=== PATIENT | female | born 1965 | race Caucasian/White ===

== ENCOUNTER 2022-12-19 14:28 | Outpatient (OUT) | payer OTHER, SELFPAY ==
--- NOTE | 2022-12-19 14:31 | MM_ITS ---
Patient: TERA IGNACIO Exam Date: 12/19/2022 : 1965 Gender:F Ordering : DR Betzaida Colon [facility] Admission #: [id number] Family : DR Dian Murcia M.D. Order #: [id number] CLICK HERE TO VIEW EXAM RADIOLOGY REPORT PROCEDURE: MM TOMOSYNTHESIS SCREENING BI COMPARISON: MG MAMM SCREEN 3D JESSE CAD, 10/10/2020. MG MAMM SCREEN 3D JESSE CAD, 12/05/2021. INDICATIONS: Screening mammogram Z12.31 Calculator Name NCI Breast Cancer Risk Assessment Tool 5 Year Breast Cancer Risk n/a% Lifetime Breast Cancer Risk n/a% Personal Breast Cancer Yes, 2013, left Personal Ovarian Cancer No Treatments lumpectomy, radiation Family Cancers Grandmother-paternal with breast cancer at age 81; Mother with female cancer at age 35; Daughter with female cancer at age 34; Aunt-maternal with breast cancer at age 48; Father with lymphoid cancer at age ~60; Father with prostate cancer at age ~70. LOCATION: [facility] BREAST COMPOSITION: Heterogeneously dense,which may obscure small masses. FINDINGS: DIAGNOSTIC CATEGORY 2--BENIGN FINDING. NO CHANGE FROM COMPARISON. Scattered benign-appearing calcifications are present. Scattered benign-appearing lymph nodes are present. RIGHT BREAST: No significant suspicious finding. LEFT BREAST: No significant suspicious finding. Asymmetrically small. Area of architectural distortion upper outer quadrant appears stable from prior exams, consistent with post treatment changes RECOMMENDATIONS: ROUTINE MAMMOGRAM AND CLINICAL EVALUATION IN 12 MONTHS. PLEASE NOTE: A NORMAL MAMMOGRAM DOES NOT EXCLUDE THE POSSIBILITY OF BREAST CANCER. A CLINICALLY SUSPICIOUS PALPABLE LUMP SHOULD BE BIOPSIED. Dictated by: Andrew Piper MD on 12/22/2022 at 08:14 Approved by: Andrew Piper MD on 12/22/2022 at 08:16
== END 2022-12-19 14:29 | disposition home or self-care (01) ==
LOC: MAMMO 14:28
PROVIDERS: PCP Family Medicine; Visit Provider Physician Assistant Medical
DX: Z85.3 Personal history of malignant neoplasm of breast (principal); Z12.31 Encounter for screening mammogram for malignant neoplasm of breast; Z80.3 Family history of malignant neoplasm of breast; Z80.7 Family history of other malignant neoplasms of lymphoid, hematopoietic and related tissues; Z80.42 Family history of malignant neoplasm of prostate; Z80.8 Family history of malignant neoplasm of other organs or systems
CPT/HCPCS: 77063; 77067

== ENCOUNTER 2024-01-26 14:00 | Outpatient (OUT) | payer OTHER, SELFPAY ==
--- NOTE | 2024-01-26 14:11 | MM_ITS ---
Patient Name: TERA IGNACIO MR#: [id number] : 1965 Exam Date: 01/26/2024 Ordering Doctor: DR Dian Murcia M.D. RADIOLOGY REPORT PROCEDURE: MM TOMOSYNTHESIS SCREENING BI COMPARISON: MG MAMM SCREEN 3D JESSE CAD, 12/05/2021. MM TOMOSYNTHESIS SCREENING BI, 12/19/2022. INDICATIONS: Screening Calculator Name NCI Breast Cancer Risk Assessment Tool 5 Year Breast Cancer Risk n/a% Lifetime Breast Cancer Risk n/a% Personal Breast Cancer Yes, 2013, left Personal Ovarian Cancer No Treatments lumpectomy, radiation Family Cancers Grandmother-paternal with breast cancer at age 81; Mother with female cancer at age 35; Daughter with female cancer at age 34; Aunt-maternal with breast cancer at age 48; Father with lymphoid cancer at age ~60; Father with prostate cancer at age ~70. LOCATION: [facility] BREAST COMPOSITION: The breasts are heterogeneously dense,which may obscure small masses. FINDINGS: DIAGNOSTIC CATEGORY 2--BENIGN FINDING. NO CHANGE FROM COMPARISON. Scattered benign-appearing calcifications are present. Scattered benign-appearing lymph nodes are present. RIGHT BREAST: No significant suspicious finding. LEFT BREAST: No significant suspicious finding. Asymmetrically small. Linear scar marker left axillary tail RECOMMENDATIONS: ROUTINE MAMMOGRAM AND CLINICAL EVALUATION IN 12 MONTHS. PLEASE NOTE: A NORMAL MAMMOGRAM DOES NOT EXCLUDE THE POSSIBILITY OF BREAST CANCER. A CLINICALLY SUSPICIOUS PALPABLE LUMP SHOULD BE BIOPSIED. Dictated by: Andrew Piper MD on 01/26/2024 at 15:55 Approved by: Andrew Piper MD on 01/26/2024 at 15:57
--- NOTE | 2024-01-26 14:41 | XR_ITS ---
The [address] [address] Patient Name: TERA IGNACIO MRN: [id number] date: 1965 Sex: F Assigned Patient Location: [facility] Current Patient Location: Accession/Order Number: [id number] Exam Date: 01/26/2024 14:30 Report Date: 01/28/2024 07:28 At the request of: SHANICE RODRIGUEZ Procedure: XR DEXA axial skeleton EXAMINATION: XR DEXA axial skeleton, 01/26/2024 2:30 PM EDT HISTORY: Menopause COMPARISON: None. TECHNIQUE: Dual-energy X-ray absorptiometry (DEXA) bone density study performed for the axial skeleton. FINDINGS: Bone mineral density AP spine L1-L4 measures 1.211 g/sq cm. T score 0.3. Normal. Lowest bone density left femoral neck measures 0.914 g/cm clear. T score -0.9. Normal XR/XR DEXA axial skeleton IMPRESSION: Normal bone mineral density. Low fracture risk Pharmacologic treatment recommendations * No uniform recommendation applies to all patients. Management plans must be individualized. * Consider initiating pharmacologic treatment in postmenopausal women and men >= 50 years of age who have the following: Primary fracture prevention: * T-score <= - 2.5 at the femoral neck, total hip, lumbar spine, 33% radius (some uncertainty with existing data) by DXA. * Low bone mass (osteopenia: T-score between - 1.0 and - 2.5) at the femoral neck or total hip by DXA with a 10-year hip fracture risk >= 3% or a 10-year major osteoporosis-related fracture risk >= 20% (i.e., clinical vertebral, hip, forearm, or proximal humerus) based on the [place]-adapted FRAXregistered model. Secondary fracture prevention: * Fracture of the hip or vertebra regardless of BMD [4, 5]. * Fracture of proximal humerus, pelvis, or distal forearm in persons with low bone mass (osteopenia: T-score between - 1.0 and - 2.5). The decision to treat should be individualized in persons with a fracture of the proximal humerus, pelvis, or distal forearm who do not have osteopenia or low BMD [12, 13]. Becky MS, Yvette SL, Marine KL, Vidhya EM, Alysa KG, AJ, John ES. The clinician's guide to prevention and treatment of osteoporosis. Osteoporos Int. 2021;33(10):6497-6522. doi: 10.1007/r42823-741-91631-g. Epub 2021Aug 08. Erratum in: Osteoporos Int. 2021Nov 07;: PMID: [id number]; PMCID: [id number]. Electronically authenticated by: MALGORZATA ZIMMERMAN Date: 01/28/2024 07:28
== END 2024-01-26 14:01 | disposition home or self-care (01) ==
LOC: MAMMO 14:01
PROVIDERS: PCP Family Medicine; Visit Provider Family Medicine
DX: Z12.31 Encounter for screening mammogram for malignant neoplasm of breast (principal); Z78.0 Asymptomatic menopausal state; Z80.3 Family history of malignant neoplasm of breast; Z80.7 Family history of other malignant neoplasms of lymphoid, hematopoietic and related tissues; Z80.42 Family history of malignant neoplasm of prostate; Z80.8 Family history of malignant neoplasm of other organs or systems
CPT/HCPCS: 77063; 77067; 77080

== ENCOUNTER 2024-11-06 17:30 | Emergency (ER) | payer OTHER, SELFPAY ==
[2024-11-06 17:33] VITALS: BP 124/73; PULSE 89; TEMP 37.4; O2SAT 96; BMI 33.3
--- NOTE | 2024-11-06 17:35 | XR_ITS ---
The [place] [address] Patient Name: TERA IGNACIO MRN: [id number] date: 1965 Sex: F Assigned Patient Location: ED.MAIN Current Patient Location: ED.MAIN Accession/Order Number: [id number] Exam Date: 11/06/2024 17:59 Report Date: 11/06/2024 18:00 At the request of: MUMTAZ CARRANZA Procedure: XR wrist RT min 3V RIGHT WRIST - 3 views CLINICAL HISTORY: Fell forward on blacktop COMPARISON: None FINDINGS: Soft tissue swelling is present. Impacted intra-articular fracture involving the distal radius. Ulna demonstrates a chip fracture involving the styloid process. Carpus demonstrates mild degenerative change. XR/XR wrist RT min 3V IMPRESSION: IMPACTED INTRA-ARTICULAR FRACTURE OF THE DISTAL RADIUS. CHIP FRACTURE STYLOID PROCESS OF THE ULNA. Impression dictated by: Chuck Tipton Jr., DDanayODanay 11/06/2024 6:00 PM Dictation Location: [employer] Electronically authenticated by: [id number] Y Date: 11/06/2024 18:00
--- OUTSIDE RECORDS SUMMARY | 2024-11-06 17:56 | XMS_ITS | CCD ---
Author Organization [facility] Care Team Providers Care [employer] Operator Name Role Phone SHANICE RODRIGUEZ Primary Care Physician [phone] Shanice Rodriguez MD Primary Care Provider [phone] MIS, DR BOOTH Attending Unavailable MISC, DR BOOTH Admitting Unavailable ARMANDO, DR RAJI Rowland Consulting Unavailable MICHAEL, DR SHANICE Kelley Primary Care Unavailable LATRICE RENNER Consulting Unavailable MICHAEL, DR SHANICE Kelley Admitting Unavailable MICHAEL, DR SHANICE Kelley Attending Unavailable MICHAEL, DR SHANICE Kelley Consulting Unavailable MICHAEL, DR SHANICE Kelley Primary Care Unavailable LUZ MEDINA Consulting Unavailable Shanice Rodriguez MD Primary Care Provider LATRICE RENNER Referring Unavailable SHANICE RODRIGUEZ Primary Care Unavailable BETZAIDA COLON Attending Unavailable Sandra Medina Unavailable Shanice Rodriguez Unavailable Shanice Rodriguez MD Primary Care Provider [phone] Gaivn Coleman Admitting Unavailable Shanice Rodriguez Primary Care Unavailable Gavin Coleman Attending Unavailable Shanice Rodriguez Primary Care Unavailable Gavin Coleman Attending Unavailable Gavin Coleman Admitting Unavailable Shanice Rodriguez MD Primary Care Provider GALE ENRIQUEZ Attending Unavailable GAVIN FUENTES Attending Unavailable SANDRA QURESHI Referring Unavailable SANDRA QURESHI Attending Unavailable SANDRA QURESHI Attending Unavailable COLEMANGAVIN FIELDS Attending Unavailable SANDRA QURESHI Attending Unavailable Allergies Allergy Classification Reported Allergen(s) Allergy Type Date of Onset Reaction(s) Facility (1 source) Adhesive bandage Drug allergy Unknown (qualifier value) [facility] (18 sources) Latex; Translations: [Latex] Drug allergy 5 Unknown (qualifier value) [facility] (4 sources) Adhesive Tape; Translations: [ADHESIVE TAPE (ROSINS)] Allergy to substance 3 Itching [facility] (2 sources) Adhesive Tape Drug allergy 5 Unknown [facility] Other (2 sources) Adhesive Tape; Translations: [adhesive tape] Allergy to substance 4 [facility] (13 sources) Wound Dressing Adhesive Drug Allergy 3 Rash, Itching [facility] (13 sources) Wound Dressings Drug Allergy 4 [facility] Medications Current Medications Medication Drug Class(es) Dates Sig (Normalized) Sig (Original) albendazole 200 mg oral tablet (2 sources) Antihelminthic Start: 04-25-2023 take 2 tablets by mouth every twenty-four hours Albendazole 200 MG 2 tablets Orally once a day for 3 days Apr, Active ALPRAZolam 0.25 mg oral tablet (1 source) Benzodiazepine Start: 08-30-2021 take 1 tablet by mouth twice daily as needed for anxiety alprazolam 0.25 mg Tab 0.25 mg = 1 tab(s), Oral, BID, PRN as needed for anxiety, Refills(s) 0 Start Date: 08/30/21 Status: Ordered calcium carbonate 1250 mg chewable tablet (13 sources) Start: 12-31-2023 calcium carbonate (Os-Dewayne) 1250 (500 Ca) MG chewable tablet Daily 12/31/2023 Active Calcium Magnesium Zinc 333-133-5 MG (2 sources) take 1 tablet by mouth once daily at bedtime Calcium Magnesium Zinc 333-133-5 MG 1 tablet with meals Orally qhs Active cetirizine hydrochloride 10 mg oral tablet (15 sources) Histamine-1 Receptor Antagonist Start: 12-31-2023 cetirizine (ZyrTEC) 10 MG tablet 1 tablet 12/31/2023 Active take 1 tablet by john every twenty-four hours Allergy (Cetirizine) 10 MG 1 tablet Oral ly Once a day Active cholecalciferol 0.01 mg / tricalcium phosphate 658 mg chewable tablet (16 sources) Vitamin D Ca Phosphate-Cho lecalciferol 250-10 MG-MCG chewable tablet Chew. Active calcium phosphat e-vitamin D3 250 mg-10 mcg (400 unit) chew Take by mouth. 0 Active Comment on above: Take by mouth. Multivitamin (Daily Multi-Vitamin) tablet (1 source) Start: 4 take 1 tablet by mouth once daily Multivitamin (Daily Multi-Vitamin) tablet Active 1 TAB PO Daily December 31, 2023 12:00am Multivitamin preparation (2 sources) take 1 tablet by mouth once daily Multi Vitamin - 1 tablet Orally Once a day Active tamoxifen 20 mg oral tablet (5 sources) Estrogen Agonist/Antagonist Start: 3 End: 3 take 1 tablet by mouth once daily tamoxifen (NOLVADEX) 20 mg tablet Take 1 tablet (20 mg) by mouth once daily. 90 tablet 3 08/13/2022 11/11/2022 Active Start: 12-09-2021 take 1 tablet by john th once daily tamoxifen (NOLVADEX) 20 mg tablet Take 1 tablet (20 mg) by mouth once daily. 90 tablet 2 12/09/2021 Active Start: 09-21-2020 End: 09-23-2021 take 1 tablet by mouth once daily tamoxifen (NOLVADEX) 20 mg tablet TAKE 1 TABLET BY MOUTH EVERY DAY 90 tablet 3 09/23/2021 Active Comment on above: TAKE 1 TABLET BY JOHN TH EVERY DAY Take 1 tablet (20 mg ) by mouth once daily. Completed/Discontinued Medications Medication Drug Class(es) Dates Sig (Normalized) Sig (Original) ferrous sulfate (3 sources) End: 03-02-2024 take 1 tablet by mouth in the morning Ferrous Sulfate (IRON PO) Take 1 tablet by mouth in the morning. 03/02/2024 Discontinued take 1 tablet by mouth in the mo rning Ferrous Sulfate (IRON PO) Take 1 tablet by mouth in the morning. Active Problems Active Problems Problem Classification Problem Date Documented Date Episodic/Chronic Cancer of breast (3 sources) Malignant tumor of breast ; Translations: [Malignant neoplasm of unspecified site of unspecified female breast] Onset: 07-06-2012 07-06-2012 Chronic Menopausal disorders (5 sources) Postmenopausal bleeding; Translations: [Postmenopausal bleeding] Onset: 04-07-2024 03-02-2024 Chronic Other aftercare (2 sources) Surgical follow-up; Translations: [Encounter for follow-up examination after completed treatment for conditions other than malignant neoplasm] 04-22-2024 Episodic Other and unspecified benign neoplasm (2 sources) Melanocytic nevus of trunk; Translations: [Melanocytic nevi of trunk] 09-08-2024 Episodic Other and unspecified benign neoplasm (2 sources) Dermatofibroma; Translations: [Other benign neoplasm of skin, unspecified] 09-08-2024 Episodic Other infections; including parasitic (1 source) Helminthiasis, unspecified Episodic Other non-epithelial cancer of skin (1 source) Basal cell carcinoma of upper extremity 08-30-2021 Episodic Other nutritional; endocrine; and metabolic disorders (1 source) Body mass index 30+ - obesity 09-06-2021 Chronic Other screening for suspected conditions (not mental disorders or infectious disease) (2 sources) Endometrium thickened; Translations: [Abnormal findings on diagnostic imaging of other specified body structures] 03-31-2024 Chronic Other screening for suspected conditions (not mental disorders or infectious disease) (11 sources) Screening for malignant neoplasm of colon done; Translations: [Encounter for screening for malignant neoplasm of colon] Onset: 09-06-2021 Episodic Other skin disorders (2 sources) Lentiginosis; Translations: [Other melanin hyperpigmentation] 09-08-2024 Episodic Other skin disorders (2 sources) Seborrheic keratosis; Translations: [Other seborrheic keratosis] 09-08-2024 Episodic Residual codes; unclassified (1 source) Family history of malignant neoplasm of breast; Translations: [FAMILY HX MALIG NEOPLASM OF BREAST] Onset: 12-06-2021 Episodic Residual codes; unclassified (1 source) Family history of other malignant neoplasms of lymphoid, hematopoietic and related tissues; Translations: [FAM HX OTH MAL DONOVAN LYMPH HEMATPOETC] Onset: 12-06-2021 Episodic Residual codes; unclassified (1 source) Family history of malignant neoplasm of prostate; Translations: [FAMILY HX MALIG NEOPLASM PROSTATE] Onset: 12-06-2021 Episodic Residual codes; unclassified (1 source) Family history of malignant neoplasm, unspecified; Translations: [FAM HX MALIGNANT NEOPLASM UNS] Onset: 12-06-2021 Episodic Residual codes; unclassified (1 source) Menopause present; Translations: [Asymptomatic menopausal state] 12-31-2023 Episodic Residual codes; unclassified (1 source) Asymptomatic menopausal state; Translations: [Symptomatic menopausal or female climacteric states] 12-31-2023 Episodic Spondylosis; intervertebral disc disorders; other back problems (1 source) Low back pain 08-30-2021 Episodic Unclassified (1 source) Patient encounter status 09-06-2021 Unclassified (3 sources) LOW BACK PAIN, UNSPECIFIED; Translations: [LOW BACK PAIN, UNSPECIFIED] Onset: 08-14-2021 Past or Other Problems Problem Classification Problem Date Documented Da te Episodic/Chronic Anal and rectal conditions (13 sources) Rectal pain; Translations: [Other specified diseases of anus and rectum] Onset: 10-13-2023 10-13-2023 Episodic Cancer of breast (4 sources) History of malignant neoplasm of breast; Translations: [Personal history of malignant neoplasm of breast] Onset: 10-24-2015 08-30-2021 Episodic Gastrointestinal hemorrhage (13 sources) Hematochezia; Translations: [Melena] Onset: 10-13-2023 10-13-2023 Episodic Hemorrhoids (15 sources) Hemorrhoids; Translations: [Other hemorrhoids] Onset: 10-13-2023 10-13-2023 Episodic Unclassified (1 source) LOW BACK PAIN, UNSPECIFIED; Translations: [LOW BACK PAIN, UNSPECIFIED] Onset: 08-09-2021 Results Test Name Value Interpretation Reference Range Facility PATHOLOGY REQUEST FOR LAB CO RPon 04-12-2024 PATHOLOGY REQUEST FOR LAB SHAMA [facility] Comment on above: See report. Scanned copy available in EMR. PATHOLOGY AMBULATORY SPECIMEN [facility] Path[facility] Request for Lab Co rpon 04-07-2024 Pathology Request for Lab Shama Normal [facility] Comment on above: Order Comment: PATHO LOGY AMBULATORY SPECIMEN Result Comment: See report. Scanned copy available in EMR. PERFORMED BY: [address] [id number] PATHOLOGIST SUPERVISOR [employer] PAULINA JETER M.D. Performed By: #### P ATH TO [facility] #### [address] [address] [facility] ECG 12 lead ECGon 03-18-2024 ECG 12 lead ECG [facility] Main [place] [address] [id number] Electrocardiograph Report Signed Patient: Tera Ignacio MR#: [id number] : 1965 Acct:[id number] Age/Sex: 59 / F ADM Date: 03/18/24 Loc: Room: Type: [facility] Attending Dr: Gavin Coleman MD Ordering Provider: Gavin Coleman MD Date of Service: 03/18/2410/04/1444 ECG/ECG 12 lead ECG: surgery 04/07/24 Copies to: Test Reason : Blood Pressure : */* mmHG Vent. Rate : 85 BPM Atrial Rate : 85 BPM P-R Int : 194 ms QRS Dur : 86 ms QT Int : 344 ms P-R-T Axes : 53 -47 7 degrees QTcB Int : 409 ms Normal sinus rhythm Left anterior fascicular block Nonspecific T wave abnormality Abnormal ECG Confirmed by Molly Galeas ([id number]) on 03/20/2024 11:01:58 PM Referred By: Electronically Signed By: Molly Galeas Transcribed By: MUS Signed By Molly Galeas MD 4 [id number] Normal [facility] [place] 08-08-2022 ZURI Telephone (MATHIEU) TERA IGNACIO ([id number]) 1965 F Date Time Provider Department 08/08/22 SARAI NORRIS During your visit today, we recorded the following information about you: Curry Norris [facility] 08/08/2022 11:28 AM Signed I received a prior authorization request for Tera's tamoxifen, from what I see she should be done with her 10 years next month. OK for her to stop now? Please advise, if I should move forward with CINDI. Thank you Dale Norris, PharmD, BCOP Betzaida Colon PA-C 08/11/2022 2:56 PM Signed I'd prefer she finish one more month of therapy Betzaida Colon PA-C Allergies As of Date: 08/08/2022 Noted Allergy Reaction ADHESIVE TAPE (ROSINS) 07/06/2012 9 - Itching Date Reviewed: 12/09/2021 Reviewed by: Betzaida Colon PA-C - Fully Assessed Reason for Visit: Medication Question [1478] Prescriptions as of 08/11/2022 - tamoxifen (NOLVADEX) 20 mg tablet Take 1 tablet (20 mg) by mouth once daily. - calcium phosphate-vitamin D3 250 mg-10 mcg (400 unit) chew Take by mouth. Problem List As Of Date 08/08/2022 Noted Resolved Breast cancer [C50.919] 07/06/2012 History of breast cancer [Z85.3] 10/24/2015 Encounter Status:Closed by SARAI NORRIS on 08/11/22 [facility] CNOVSPon 12-09-2021 CNOVSP Visit (SP) Office (HEMASA) TERA IGNACIO ([id number]) 1965 F Date Time Provider Department 12/09/21 2:00 PM BETZAIDA COLON During your visit today, we recorded the following information about you: Temperature Pulse Respiration Blood pressure 96.9 degrees 74/minute 18/minute 132/68 Weight Height 94 kg 1.651 m Betzaida Colon PA-C 12/09/2021 2:38 PM Signed (Elements copied from Dr. Renner's note dated October 24, 2020, have been reviewed and updated where appropriate, and all reflect current assessment and medical decision making during today's encounter, December 09, 2021) CHIEF COMPLAINT: stage 1 left breast cancer HISTORY OF PRESENT ILLNESS: Tera Ignacio is a 55 year old woman who presents in follow up of above. Diagnosed 06/2012, treated with left lumpectomy and radiation. Tumor was [id number]. ER and WY receptors were strongly ( >90 %) positive, HER 2 jun was negative by FISH with the score 1.1. KI 67 was 5-10 %. Oncotype score was 19. Started Tamoxifen 08/2012. Remains on Tamoxifen and tolerates it well. Minor hot flashes. No vaginal bleeding or signs of clotting. Last mammogram was in November 2021 and negative. She did have surgery on her left trigger thumb earlier this month and it is healing well. PAST MEDICAL HISTORY Diagnosis Date Breast cancer (HCC) PAST SURGICAL HISTORY Procedure Laterality Date BREAST BIOPSY Review of Social History includes: Social History Tobacco Use Smoking status: Never Smokeless tobacco: Never Substance Use Topics Alcohol use: Yes Drug use: No No family history on file. Current Outpatient Medications Medication Sig tamoxifen (NOLVADEX) 20 mg tablet TAKE 1 TABLET BY MOUTH EVERY DAY calcium phosphate-vitamin D3 (CALTRATE GUMMY BITES) 250-400 mg-unit chew Take by mouth. No current facility-administered medications for this visit. REVIEW OF SYSTEMS: Constitutional: No fever, night sweats or unwanted weight loss. Respiratory: No cough or hemoptysis. NO dyspnea Cardiovascular: No chest pain or palpitations. NO leg swelling GI: No nausea, vomiting, diarrhea or GI bleed. Skin: No rash or lesions. Neurologic: No focal weakness or sensory changes. Psychiatric: Normal affect. Denies mood swings Hematopoietic: No easy bruising or enlarged lymphadenopathy. : No frequency or dysuria. No recent menses, recent testing as noted PHYSICAL EXAMINATION: BP 132/68 Pulse 74 Temp 36.1 ?C (96.9 ?F) (Temporal) Resp 18 Ht 165.1 cm (5' 5 ) Wt 94 kg (207 lb 3.2 oz) LMP 10/12/2020 SpO2 99% BMI 34.48 kg/m? General: Alert and oriented, no distress, pleasant and cooperative. Heart: Regular, normal S1 and S2, no murmurs, rubs, or gallops Lungs: Clear to auscultation bilaterally Abdomen: Benign Extremities: Feet/ankles without edema, posterior tibial pulses full and symmetrical Breast: bilateral breast exam without masses, nodules or skin lesions 12/05/21 Mammogram 08/04/17 Mammo Pathology 06/2012 56 year old woman with history of stage 1 left breast cancer. Currently on tamoxifen. Tolerating well with only mild hot flashes. Has elected to proceed with 10 years of Tamoxifen 1. History of Left Breast Cancer: Will continue tamoxifen and finish 10 years in August 2022, then stop. Mammogram in November 2022 See us in 1 year for follow up. Betzaida Colon PA-C Referring Provider: LATRICE RENNER [[id number]] Allergies As of Date: 12/09/2021 Noted Allergy Reaction ADHESIVE TAPE (ROSINS) 07/06/2012 9 - Itching Date Reviewed: 12/09/2021 Reviewed by: Betzaida Colon PA-C - Fully Assessed Reason for Visit: Breast Cancer [519] Primary Visit Diagnosis:History of breast cancer [Z85.3] Order(s):tamoxifen (NOLVADEX) 20 mg tabletTake 1 tablet (20 mg) by mouth once daily.Disp: 90 tabletRfl: 2 ANN SCREENING W LEORA [[id number]] Order #: [id number] FUTURE Disposition: Return in about 1 year (around 12/09/2022) for MD visit. Follow-up and Disposition History for Encounter Date Provider Department Center 12/09/2021 [id number], M[facility]Y [facility] Prescriptions as of 12/09/2021 - tamoxifen (NOLVADEX) 20 mg tablet Take 1 tablet (20 mg) by mouth once daily. - calcium phosphate-vitamin D3 250 mg-10 mcg (400 unit) chew Take by mouth. Problem List As Of Date 12/09/2021 Noted Resolved Breast cancer [C50.919] 07/06/2012 History of breast cancer [Z85.3] 10/24/2015 Encounter Status:Closed by BETZAIDA COLON on 12/09/21 [facility] MG MAMM SCREEN 3D JESSE CADon 12-05-2021 MG MAMM SCREEN 3D JESSE CAD Patient: TERA IGNACIO Exam Date: 12/05/2021 : 1965 Gender:F Ordering : LATRICE RENNER Admission #: [id number] Family : DR BOOTH [facility] Order #: [id number] CLICK HERE TO VIEW EXAM RADIOLOGY REPORT PROCEDURE: MAMMOGRAM SCREENING 3D BILATERAL CAD COMPARISON: MG MAMM SCREEN JESSE W CAD, 09/27/2019. MG MAMM JESSE DIAG W CAD, 08/13/2018. DIGITIZED_MAMMO, 03/18/2006. MG MAMM SCREEN 3D JESSE CAD, 10/10/2020. INDICATIONS: Screening mammography Calculator Name NCI Breast Cancer Risk Assessment Tool 5 Year Breast Cancer Risk n/a% Lifetime Breast Cancer Risk n/a% Personal Breast Cancer Yes, 2013, left Personal Ovarian Cancer No Treatments lumpectomy, radiation Family Cancers Grandmother-paternal with breast cancer at age 81; Mother with female cancer at age 35; Daughter with female cancer at age 34; Aunt-maternal with breast cancer at age 48; Father with lymphoid cancer at age 60; Father with prostate cancer at age 70. LOCATION: [facility] BREAST COMPOSITION: Heterogeneously dense,which may obscure small masses. FINDINGS: DIAGNOSTIC CATEGORY 1--NEGATIVE. RIGHT BREAST: No significant suspicious finding. No significant change has occurred. LEFT BREAST: No significant suspicious finding. No significant change has occurred. RECOMMENDATIONS: ROUTINE MAMMOGRAM AND CLINICAL EVALUATION IN 12 MONTHS. PLEASE NOTE: A NORMAL MAMMOGRAM DOES NOT EXCLUDE THE POSSIBILITY OF BREAST CANCER. A CLINICALLY SUSPICIOUS PALPABLE LUMP SHOULD BE BIOPSIED. Dictated by: Raji Melgoza M.D. on 12/05/2021 at 14:05 Approved by: Raji Melgoza M.D. on 12/05/2021 at 14:08 Normal [facility] Coding Summary.on 10-22-2021 Coding Summary. [id number] Gh 0bWw+PGhlYWQ+GT4PFAHwV 42dvSBfsB7ED9oPTJ2SKBH YMXYSAQ7AKB0rvQC4JVuhG 2VybiAv KexsyLLrFL11IYd3IBL9zE egVDsyzD4qfTFtA0y6CaVb FA38fR79DFbwKZCfHcT6Ru ZpbjsgbWFy X5zgIuZiiMZtOcr+PHRhYm xlIHdpZHRoPScxMDAlJyBz hKsdSF5hBc1gOFSxDIExlY xhcHNlOiBj z6kdLLDaYJrfBE7ipMatE7 NkuPF2AKAez4z4Dt45uQP+ QDYxESB8fNwwLZpdi184Yh Cak5zfADK7 yCMqKSdiHBS6R55km4J4YG YnUOWiPBA1iXI6lN6ogZyp cjgvI9NctACiKuF5CUK8oM GrkO7quUov xezroL6nKvw+D59QUE2GTR QHXM7EQeg9W0RmJqqzzHA+ NI97PVSfUX03gSVkeYJgd3 wvlEe4UxAv PFWqXKO6bMwxJYtnj6NvIC TzO75gaFRwo2A7QODdeVdg hWKzGsPgrCC4fI3kFLilad pie8aaotgh Dknqy4uzvv72zD38E06lQF itHWUeBZD9WDAuTCMbgMfa ht4zlO9fJl3+HRvqg1ddc6 masRm7HvKj KTKyofPlbNtzGOI5s8VmHq 20U6ThrTnpz9BmZmc3im86 hBCbk5W3vFT1XKhwTLLkmS 5lSBwqAzM6 TYTqAnBweV04bQByEEgbTc 7zgYxjfUcdYO8bYRBybqmd MAPglB8mHXOnzWQifXxaJR 4wNTBpbjtm l900MuBxFDD3ZDPhbEYyR4 KnbZ7uZmVpTHFqAABvQ0Ty gZWsDBvnU577FNvdXeQ0JR CearPzD3Mi NTIbgPbeHeH0l6N0Zf2Ec3 IlneuwMFW6PQbbUIH3XcTe ZxAnAxT7J3NkZco0EWHigN rfEE6kT3Jl CZFiylbvbwguvOX4YLYiCA UzaH50rJGsYAymCg2sk2L5 x286MQDkRNHotN53Mi1whL ogMTBwdCBU eP9jttcep2ifxsjhIuMjTG VaHFd6WJb3BLPtxTuqPjOx NLO3LqR4ZKZ1gIXvvA3uaU qkyobmqE8f Oyc+W44brQ0tJKR7KIF4ni vrFAPmbgQvNL10TL20V0Mk PjwvdGFibGU+PGRpdiBzdH zyQC4uTcTf w6odc5TlNWmwB3GdVQNzVQ xnIda2OTQmBTG3cKF9sF7h EUTySKakq0Y7cUG2P9Ogcx Zmgj4nt7wm JHLkIOhnJ36upXXay7N2XI TalTI6ICEurWggTsQojJ40 Oyc+RPGegAnnr0ObOlkpr5 kgd9godFt3 DoClTLTjlwLryBhjDWV5i7 PlDb32K52yLYgyHIWeFKVe DNMkAOGxeZhztz0fkG7mAd 8+PGNvbCB3 eZX4xH8sSFAoBqN0QXjvO0 44BkFrwMEoBbnxh2kau3qz uTh5MfZeQCCbqyVtaOrtRK P0v3RyZb45 K07gGErjKKQwBGZwUKFbVO RnsRozjf6mfF5eOl2+PC9j w4rwmg05cR82fON+PHRkIH K1bYcdALva PZKizT7hXAlyAzP9VZJvXu FqyT99lMXaBVwmMl0fpZhl pWkhSR0bTZAufosup432Bp Dyf1jaKGXn bYObHWghBMR0F21kw3Y5NN TuYMMfTRB0tZB8vX6bcTqe bjogbGVmdDsgdmVydGljYW kmDNcsO819 IHRvcDsnPlBhdGllbnQgTm TiGVi9A5OaYju2PPDytOsa UE6pmNIaYFnbTi5piVklvO vrPZ0bDRLs rdizn549LhIyh9wkCKYtaB ZcRNgdPSG4R42cb5A1ATIm WEByGKJ7sGZ2kD5lyXaxov ogbGVmdDsg xzSjoNneGDeaNWkmW390EZ RvcDsnPkJpcnRoIERhdGU6 XN91XI57fLTro2A9tLQ1P9 BhZGRpbmct rzsctPF3UTGsJRBgcT14Nx 5jdXkeXr0vCJNoVQZ6VQUm jYToN6MrlA9nXeCxCTJiWX FqJ9GeqAPz VAeoV851HSmjPkW1DREnqo JmR2McLIJjeMsmUyP9k4M5 Fh0TT3P1LX78KG10pMOhe6 G3hUO4D6Aj SYDyxfqukovljGV5BKBlXT WkoR55Oz8fhVjuPt2aKAEt WPR9RCZlbVMtD3GokT6wIj AjMDAwMDAw T7LpaQZpRXpdP283GGcgFf A9ZKRiokYbI3FrGXRsvIsa WoP2u3A3Fr0XFOz3YW17QB 28wQLxm0J5 zEG9U0TuIJDhfpinkrkmmG A8ZWUrQKMlkV95Aw6qoTcp Bp3cOGCtRWE8NAEibYRwW2 VdrB7cPjGh XCNdQBCzL9UeaYYwGIocR9 71ACvoWtV4EEPhgyNzN4Yi RETzlCcbDsY8b1W1Dm2HES LhOU93MIG6 uPB4AW94UU11V8HrZzdwsI FibGU+PHRhYmxlIHdpZHRo ATzcLNJmKiUnaNiqRS3zIj 9yZGVyLWNv oGvitVDgTpLpw5fdZZBnZU kcPK6wuAztE9NimRK9SXLk h8l6Gk86F02oI9PrgVC+PG LqkOY5sWS6 zC3fZcRqSoM7WFyuC623Zq UliXUwMelrx2fed0vtpLh5 IvL9NRUqlrIsuEiaKSF4p5 CzHn40N46f IHdpZHRoPSIxNSUiIHZhbG yohn1fkM0eRv7+PGNvbCB3 qCM7hD3eWhZnSeU0OCxoE3 49InRvcCIv Myfkv7qid7dpuSo3WwVsVD McgaCquVbdJSW1d4AaCy43 U2YigWhdk4LyQob1le39wO Gvb3S3zYG8 Q2BfEOYucomseCJvaCiwFA 4yBGRueipjNJSseQ2fXBZd Z1d5EpFcMeY9HPuuW3Rldq Q8WQQqbWVd ANkaOIY9J26zo6F8XPEgYL OkGYX4zBD7mY5bzYakgcxn bGVmdDsgdmVydGljYWwtYW lvX119UDRx wCacOLFifZ9pSPEgtWFijW qoUT7fVFRfqrkyCkXFV7Ob UV1EXqLLYWj6B8KpGnt2AC HzyOvnKF7j gQWlNWqdYc5frUogwAxhUH 0vKNLmmullSRYocP5tCGPq aKAbsMfnSZ1jMCYghjxkb2 78QsRdMQV7 MLMabRYuB5MtjD4jJvGxUK DeWSVfF7IcyBMsGUyuK193 VLevAmB0XDUlznDcB8EbEK FsaWduOiB0 s2P0Tt8wNd7pHN2dMNL5GU 87QL67qVWwq9X8gFI0Q3Vo YUCzqglosahhqIC3RKJgMF IvaW61aDZw YSmsKd5va3D2s370LZYoFI FgyU97Aj2yyWlbDYWcqGNN iP5wgvcqg4yhysyhBgPqFT VlVQd0ZTx2 TBRxaNquInXvNAP6MiF8DU O6hYSjaH7ivSjqhxivvG7w Oyc+ORFkPQAohfA5Z4XtGw t9MNIqyQem JI7pcTGmAOrhIt2bmNmwnE fvJC1zHHQepfyyEKMajA4p PQWrjCTebWeeBP8zDEGyod fuc507GnVf XYZ8MIEayILbF9JowQ9gVq OjOAMcITUfG2CgmFXfOUxm M943KIatMnH2GQAyqcSnA2 FsLWFsaWdu UtQ9i6M4Rc5CRS9tlJX7C9 IqCqa9DHMijNttPS6zzRUx KUkcQb9ugXwgcInmKB0xXD BpbjtwYWRk zV0mQRWujMWnwBwqBQ4mCG Kmulhdd591RjQsPYC2LOOi hEOdT2BqgJ9aFmZsTGGkJP YuM1GbkFBz LXzeQ940RNvfAeT1YQEgxh KcK0RyMBSsjEogMnL8k1B7 Vz5QtLUlMUCtWL95UL57PP 93T6ByLron dGFibGU+PHRhYmxlIHdpZH FzCCdnUYRrAxEhlGokMQ7m Tz7kFEQhMCTkkTaxaVGwHr Lhp1mlNEYo GBuoBW3uoGswO3YltLG0EQ Jhm8h1Nc35E91vU6MioWL+ JEXlnJW4uZF3eY0yYjZcIj K8HAvfS269 SoEmdEIgOqkzg2wrq2wpcS e2IzXuICPuqqIvuTeiHYD7 t6MyXc43S99qUCewNIMkNV IyMCUiIHZh oQzbde0xyC9jTd0+PGNvbC P7iRR0jT9eBfRvDlE5EIfk X582XzDpvQCbKrfpY85hU8 JvdXA+PHRy Pss8HBWngWgyWI0odXObZC ubCe5dUBP1DjOoVsKlAUnh C6KlHWUwwzbudopqlWW5DN YuUFJzdI13 Hj4eeTlkMz7jEMSrFZO1QG QubJEeM8UygJ9yAjEjPMRb IPBtW6JvcSRfCRqpQ124DE xvCsH1RCPw ilZxJ3ZkUFIxcEtcRrB8q1 N4Pj4MdChdfZJbZY8sLmOs JUu9G0ElSzr3TBRguQcwYR 0ncGFkZGlu Gq4phIdfnPycRF9kVJSiqb jro323IhKuu0cdQICodEOe JOkvYBM7N64rj6V4PBSdNG SyKYP6uIY3 hY0wqVienqaurJKchCzpol YjsEajQQtvQHhkZ029TESi rPghXnRGCzq6N6KlPcu9QK PfjEqsIZ7x gMDgHMevJi4ebSxmvPnwTJ 7wIEOckuyhy393VcLho8qd CDLixPPfTAwwUUA4W87qe6 O0XFXyRZCk FTY5kDE7mL9bxUtaneeefP VmdDsgdmVydGljYWwtYWxp I513ODOeoImhTd2FPmy3B0 KsJru8CTLi wSmvUW1tbITgTZsaYq2hsN lfsLkyDS7fJHXraxcah599 AxWvj5iaCXHejUGrZBgkXU K7V69oq3J9 QGRdWSPbRTE9eQY1cO9uoC lnbjogbGVmdDsgdmVydGlj OKeoBGmkS339KYFjyBcaAd BheWVyOjwv dGQ+BV43zl97U1VgPuvhAr s5YYZoLYK8cRG5kK4bLEEy AGqyu9S6kQM5P2TlmqXpkl 3kx8nyPGDw ZTog (more content not included)... Normal [facility] IntraOperative Documentson 0 10-21-2021 IntraOperative Documents [id number] [facility] Main OR Intraoperative Recor don 10-17-2021 Main OR Intraoperative Record IntraOp Document Type FT Summary Primary Physician: Zac DE LA CRUZ MD Finalized Date/Time: 10/17/21 07:45:49 Pt. Name: TERA IGNACIO Ayleen/Sex: 1965 Female Med Rec #: [id number] Physician: Ruben BARKER MD Financial #: [id number] Pt. Type: O Room/Bed: / Admit/Disch: 10/11/21 08:56:07 - 10/11/21 23:59:59 Institution: Case Times FT Entry 1 Patient Times In Room 10/11/21 10:05:00 Out Room 10/11/21 10:22:00 Procedure Times Start 10/11/21 10:08:00 Stop 10/11/21 10:20:00 Anesthesia Times Start 10/11/21 10:05:00 Stop 10/11/21 10:22:00 Time at [place] 10/11/21 10:14:00 Last Modified By: Gio CÁRDENAS, Marylu Fish 10/11/21 10:22:04 General Comments: 10/17/21 Chart opened to review and send charges [facility]oth CSFA Case Attendance FT Entry 1 Entry 2 Entry 3 Case Attendee Nancy Mendoza RN, Neha Ram Role Performed Anesthesiologist Health Director - Primary Scrub - Primary Warehouse Foreman Time In 10/11/21 10:05:00 10/11/21 10:05:00 10/11/21 10:05:00 Time Out 10/11/21 10:22:00 10/11/21 10:22:00 10/11/21 10:22:00 Procedure COLONOSCOPY(.) COLONOSCOPY(.) COLONOSCOPY(.) Comments Dr. Chanel supervising case Last Modified By: Gio CÁRDENAS, Marylu Powers RN, Marylu López RN 10/11/21 10:22:04 10/11/21 10:22:04 10/11/21 10:22:04 Entry 4 Case Attendee Zac DE LA CRUZ MD Role Performed Surgeon - Primary Time In 10/11/21 10:05:00 Time Out 10/11/21 10:22:00 Procedure COLONOSCOPY(.) Comments Last Modified By: Marylu Powers RN 10/11/21 10:22:04 Perioperative Protocols FT Pre-Care Text: Implements protective measures prior to operative or invasive procedure, confirms identity before the operative or invasive procedure, verifies operative procedure, surgical site, and laterality Entry 1 Procedure(s) COLONOSCOPY(.) Patient Identity Birthday, ID Band Verified (select at Check, Patient least 2): Participation Consents / H and P Anesthesia Consent, Operative Site N/A Verified HandP, Surgery/Procedure Marking Verified Consent Surgical Site No Laterality Verified n/a Verified Procedure Verified Yes Correct Patient Yes Position Verified Availability Equipment, Medication Prep Dry n/a Verified (If Applicable) PreOp Antibiotic No Time Out Nancy Mendoza, Given Participants Gio CÁRDENAS, Matthew Rivera Kirstyn K, DOROTHY BEAULIEU, Zac Rowland Time Out Complete 10/11/21 10:06:00 Outcomes Met? Yes Last Modified By: Marylu Powers RN 10/11/21 10:07:53 Post-Care Text: The patient is free from signs and symptoms of injury caused by extraneous objects Allergy Information FT Pre-Care Text: Verifies allergies Entry 1 Allergies Reviewed? Yes Allergies Reviewed Self/Patient With Outcomes Met? Yes Last Modified By: Marylu Powers RN 10/11/21 10:08:00 Post-Care Text: The patient received appropriate medication(s) safely administered during the perioperative period Surgical Procedures FT Entry 1 Procedure Description Procedure COLONOSCOPY Modifiers . Surgeon Description Colonoscopy Primary Procedure Yes Primary Surgeon Zac DE LA CRUZ MD Start 10/11/21 10:08:00 Stop 10/11/21 10:20:00 Anesthesia Type General Surgical Service General Wound Class 2 - Clean-Contaminated Last Modified By: Marylu Powers RN 10/11/21 10:19:55 General Case Data FT Pre-Care Text: Classifies surgical wound, implements aseptic technique, initiates traffic control Entry 1 Case Information OR ENDO 1 FT Case Level Level 2 Wound Class 2 - Clean-Contaminated Specialty General ASA Class 2 Preop Diagnosis Screening Postop Same As Preop No Postop Diagnosis Normal colonoscopy Outcomes Met? Yes Last Modified By: Marylu Powers RN 10/11/21 10:21:39 Post-Care Text: The patient is free from signs and symptoms of infection Skin Assessment (Pre Procedure) FT Pre-Care Text: Implements protective measures to prevent skin/ tissue injury due to thermal or mechanical sources Evaluates for signs and symptoms of physical injury to skin and tissue Entry 1 Skin Integrity Intact, [place], Warm, and Skin Abnormality No Dry Outcomes Met? Yes Last Modified By: Gio CÁRDENAS, Marylu Fish 10/11/21 10:08:23 Post-Care Text: The patient is free from signs and symptoms of injury caused by extraneous objects Patient Positioning FT Pre-Care Text: Identifies physical alterations that require additional precautions for procedure-specific positioning, verifies presence of prosthetics or corrective devices, positions the patient, evaluates the patient for signs and symptoms of injury as a result of positioning Entry 1 Procedure COLONOSCOPY(.) Body Position Lateral, right side up Feet Uncrossed? Yes Left Arm Position Resting at Side Right Arm Position Resting at Side Left Leg Position Extended Right Leg Position Extended Positioning Device Safety Strap, Pillow Under Head Large Press Points Checked Yes By Gio CÁRDENAS, (more content not included)... Normal [facility] TERA IGNACIO ([id number]) 1965 F Date Time Provider Department 10/16/21 BETZAIDA COLON During your visit today, we recorded the following information about you: Julianna Alexander MA 10/16/2021 2:24 PM Signed Patient has an appt on 10/23/21. Would you like labs, if so place orders. Julianna Alexander MA Allergies As of Date: 10/16/2021 Noted Allergy Reaction ADHESIVE TAPE (ROSINS) 07/06/2012 9 - Itching Date Reviewed: 09/23/2021 Reviewed by: Renee Woods APRN.ICE GUARD SKATING RINK - Fully Assessed Reason for Visit: Lab Orders [[id number]] Prescriptions as of 10/28/2021 - tamoxifen (NOLVADEX) 20 mg tablet TAKE 1 TABLET BY MOUTH EVERY DAY - calcium phosphate-vitamin D3 (CALTRATE GUMMY BITES) 250-400 mg-unit chew Take by mouth. Problem List As Of Date 10/16/2021 Noted Resolved Breast cancer [C50.919] 07/06/2012 History of breast cancer [Z85.3] 10/24/2015 Encounter Status:Closed by JULIANNA ALEXANDER on 10/28/21 [facility] Consent [id number] 0CD:127 Normal [facility] Discharge Instructionson Discharge Instructions [id number] 0CD:127 [facility] IntraOperative Documentson 0 10-16-2021 IntraOperative Documents [id number] 0CD:127 [facility] IntraOperative Documents [id number] 0CD:127 [facility] Postoperative Documentson Postoperative Documents [id number] 0CD:127 [facility] Reminderson 10-15-2021 Reminders - From: Rebecca Franks LPN To: N - Clinical; Sent: 10/15/2021 11:15:58 EDT Show up: 09/12/2031 07:00:00 EDT Subject: colonoscopy recall Due Date/Time: 10/12/2031 07:00:00 EDT Reminder/Recall Patient is due for screening colonoscopy 10/12/2031. Normal [facility] Colonoscopy Procedure Report on 10-11-2021 Colonoscopy Procedure Report Patient: TERA IGNACIO Age: 56 years Sex: Female : 1965 Associated Diagnoses: None Author: DOROTHY BEAULIEU, Zac Rowland Pre-Procedure Procedure Date 10/11/2021 11:44:00 . Procedure Type: Colonoscopy. Procedure provider Performed by Zac DE LA CRUZ MD Referred by SHANICE RODRIGUEZ MD. Current history and physical Documented on chart. Past Medical History Colorectal neoplasm risk assessment Average risk. Informed Consent After discussing the rationale, risks and benefits, and alternatives to this procedure, the patient provided signed consent for the procedure. Pre-procedure diagnosis: Age 50 years or over. ASA Classification: Class II. . Monitoring: See anesthesia record. . Procedure The procedure was performed in the hospital. See anesthesia record for sedation given during procedure. Rectal exam was performed and was normal. The patient was positioned starting in the left lateral decubitus position. Endoscope type used was an adult-size. The endoscope was lubricated then introduced through the anus. The scope was advanced to the cecum verified by photographing the appendiceal orifice, verified by photographing the ileocecal valve. No difficulties encountered during the procedure. The bowel preparation quality was good and was adequate (see polyps greater than or equal to 6 millimeters). The patient tolerated the procedure well. Findings The bowel was normal throughout the extent examined. Images Procedure images: rectum ileocecal valve appendiceal orifice . Post-Procedure Complications: none. Estimated blood loss: none. Specimens: none. Devices/ implants: none left in place. Impression and Plan Diagnosis: Encounter for colorectal cancer screening (LLL68-TZ Z12.11, Discharge, Medical). Course: Progressing as expected. Recommendations: Repeat colonoscopy:: In 10 years. Follow-up:: if problems/questions. Diet:: Regular diet. Medication resumption:: Continue current medications. Return to activities:: After 24 hours. Education and Follow-up: Counseled: Family. [facility] Comment on above: Other Comment: Alpa flores Attachment - attachment storage system not supported [id number] Can be viewed in source system Missing Attachment - attachment storage system not supported [id number] Can be viewed in source system Missing Attachment - attachment storage system not supported [id number] Can be viewed in source system Consent for Treatmenton Consent for Treatment [id number] 0CD:127 [facility] Inpatient Patient Summaryon 10-11-2021 Inpatient Patient Summary [facility] [address], [place] [address] [facility] Clinical Discharge Instructions PERSON INFORMATION Name: TERA IGNACIO PHYSICIANS Admitting Physician: Zac DE LA CRUZ MD Attending Physician: Zac DE LA CRUZ MD PCP: SHANICE RODRIGUEZ MD Discharge Diagnosis: Encounter for colorectal cancer screening; Encounter for screening for malignant neoplasm of rectum Comment: PATIENT EDUCATION INFORMATION Instructions: Medication Leaflets: Follow up: With: Address: When: Zac DE LA CRUZ [address], [address], [facility] [address] [place] [address] Business (1) , only if needed MEDICATION LIST Medications to Continue with No Changes Other Medications alprazolam (alprazolam 0.25 mg Tab) 1 Tablets By Mouth 2 times a day as needed as needed for anxiety. tamoxifen (tamoxifen 20 mg Tab) 1 Tablets By Mouth every day. Comment: Normal [facility] Main OR PACU I Recordon Main OR PACU I Record PACU Phase I Document Type FT Summary Primary Physician: Zac DE LA CRUZ MD Finalized Date/Time: 10/11/21 12:00:07 Pt. Name: TERA IGNACIO /Sex: 1965 Female Med Rec #: [id number] Physician: Ruben BARKER MD Financial #: [id number] Pt. Type: O Room/Bed: / Admit/Disch: 10/11/21 08:56:07 - Institution: Case Times PACU I FT Pre-Care Text: Identifies barriers to communication and implements measures to provide psychological support Develops individualized plan of care, and ensures continuity of care Maintains patient's dignity and privacy, and maintains patient confidentiality Identifies and reports philosophical, cultural, and spiritual beliefs and values Identifies individual values and wishes concerning care Implements aseptic technique, and administers prescribed antibiotic therapy and immunizing agents as ordered Evaluates postoperative tissue perfusion Implements thermoregulation measures, and monitors body temperature Evaluates postoperative respiratory status Evaluates postoperative cardiac status Evaluates postoperative neurological status Assesses pain control, collaborated in initiating patient-controlled analgesia and implements alternative methods of pain control Verifies allergies, administers prescribed medications and solutions, evaluates response to medications Entry 1 In PACU I 10/11/21 10:23:00 Discharge from PACU 10/11/21 10:53:00 I Outcomes Met? Yes Last Modified By: Alicia Alcala RN 10/11/21 11:59:49 Post-Care Text: The patient demonstrates knowledge of the expected response to the operative or invasive procedure The patient's care is consistent with the individualized perioperative plan of care The patient's right to privacy is maintained The patient's value system, lifestyle, ethnicity, and culture are considered, respected, and incorporated into the perioperative plan of care The patient participates in decisions affecting his or her perioperative plan of care The patient is free from signs and symptoms of infection The patient has wound/tissue perfusion consistent with or improved from baseline levels established preoperatively The patient is at or returning to normothermia at the conclusion of the immediate postoperative period The patient's respiratory function is consistent with or improved from baseline levels established preoperatively The patient's cardiovascular status is consistent with or improved from baseline levels established preoperatively The patient's cardiovascular status is consistent with or improved from baseline levels established preoperatively The patient demonstrates and/or reports adequate pain control throughout the perioperative period The patient received appropriate medication(s), safely administered during the perioperative period Acuity Level PACU I FT Entry 1 Start Time 10/11/21 10:23:00 Stop Time 10/11/21 10:53:00 Acuity Level Acuity Level I Last Modified By: Alicia Alcala RN 10/11/21 12:00:02 Finalized By: Alicia Alcala RN Document Signatures Signed By: Alicia Alcala RN 10/11/21 12:00 Normal [facility] Main OR Preoperative Recordo n 10-11-2021 Main OR Preoperative Record Holding Area Document Type FT Summary Primary Physician: Zac DE LA CRUZ MD Finalized Date/Time: 10/11/21 09:23:56 Pt. Name: TERA IGNACIO/Sex: 1965 Female Med Rec #: [id number] Physician: Ruben BARKER MD Financial #: [id number] Pt. Type: O Room/Bed: / Admit/Disch: 10/11/21 08:56:07 - Institution: Case Times Holding FT Pre-Care Text: Verifies consent for planned procedure, identifies individual values and wishes concerning care, includes family members in perioperative teaching Secures patient's records' belongings, and valuables, maintains patient's dignity and privacy, and maintains patient confidentiality Entry 1 In Holding 10/11/21 09:10:00 Outcomes Met? Yes Last Modified By: Ann Turner RN 10/11/21 09:22:25 Post-Care Text: The patient participates in decisions affecting his or her perioperative plan of care The patient's right to privacy is maintained Surgery Checklist FT Entry 1 Patient Birthday, ID Band Procedure Blood Consent, History Identification: Check, Patient Verification: and Physical, Surgical Participation Consent NPO after Midnight: Yes Personal Items: Glasses Personal Items clothes Complaints of Pain: No Comment: Operative Site n/a Availability Equipment Marking: Verified: Does Patient Smoke No Patient states Yes Comment - Adult leeroy- postop adult Supervision supervision available Case Cancelled in No Holding Area see comments below for reason Last Modified By: Ann Turner RN 10/11/21 09:23:48 General Comments: 100% prep in Clear yellow results Finalized By: Ann Turner RN Document Signatures Signed By: Ann Turner RN 10/11/21 09:23 Normal [facility] Monitor Recordon 10-11-2021 Monitor Record [id number]. 00CD:127 Normal [facility] Monitor Record [id number]. 00CD:127 Normal [facility] Outpatient Surgery Discharge Instructionon 10-11-2021 Outpatient Surgery Discharge Instruction [address] [place] [address] [address] Patient Discharge Instructions PERSON INFORMATION Name: TERA IGNACIO Date of : 1965 Current Date: 10/11/2021 10:23:03 PHYSICIANS Admitting Physician: Zac DE LA CRUZ MD Discharge Diagnosis: Encounter for colorectal cancer screening; Encounter for screening for malignant neoplasm of rectum MATEUSTERA has been given the following list of follow-up instructions, prescriptions, and patient education materials: PATIENT FOLLOW-UP INFORMATION Diet: Regular Discharge Activity: Resume normal activities in 24 hours, Arrange for a responsible adult supervision for 24 hours Discharge Restrictions: No driving for 24 hrs, Do not operate machinery or tools, Do not make important decisions for 24 hours, Do not drink alcoholic beverages for 24 hours Call Your Doctor For: Persistent or heavy bleeding, Temperature above 101.5 degrees, Redness, swelling, or pus at operative site, Severe pain at the operative site, Persistent vomiting IF UNABLE TO CONTACT YOUR PHYSICIAN AND YOU FEEL IT IS AN EMERGENCY, GO TO THE NEAREST EMERGENCY ROOM OR CALL 911 MATEUS Jones NANCY K, have received the attached patient education materials/instructions and have verbalized understanding: May we do a follow up call? Yes No I was present when discharge instructions were given Patient Signature Date Clinican/Nurse Signature ___ Date Follow up: With: Address: When: Zac Howell [address], [address], [place] [address] Business (1) , only if needed Pharmacy Information: [facility] Shoaib You may receive a survey from [employer] asking you to rate your care experience. Your feedback is important and will help us understand what we do well and how we can improve the quality of care we provide to you, your loved ones and our community. It?s an honor to serve you. Thank you for choosing [facility] HERE ARE THE MEDICATION CHANGES THAT OCCURRED DURING YOUR HOSPITAL STAY Medications to Continue with No Changes Other Medications alprazolam (alprazolam 0.25 mg Tab) 1 Tablets By Mouth 2 times a day as needed as needed for anxiety. tamoxifen (tamoxifen 20 mg Tab) 1 Tablets By Mouth every day. PATIENT EDUCATION INFORMATION Instructions: Medication Leaflets: Normal [facility] Patient Education - Texton 0 10-11-2021 Patient Education - Text [facility] Progress Note-Physicianon Progress Note-Physician Patient: TERA IGNACIO Age: 56 years Sex: Female : 1965 Associated Diagnoses: None Author: Jose Chanel Jr., DO Postoperative Information Post Operative Note: Post Anesthesia Care Unit. Anesthetic utilized: General. Health Status Allergies: Allergic Reactions (Selected) Severity Not Documented Adhesive Bandage- Unknown. Latex- Unknown. Problem list: All Problems Basal cell carcinoma of upper extremity / SNOMED CT 9907589527 / Confirmed BMI 34.0-34.9,adult / SNOMED CT 454456638 / Confirmed History of breast cancer / SNOMED CT 7684079945 / Confirmed Lumbar back pain with radiculopathy affecting lower extremity / SNOMED CT 061922474 / Confirmed Screening for malignant neoplasm of colon / SNOMED CT 523408267 / Confirmed Physical Examination Vital Signs 10/11/2021 10:35 EDT Heart Rate Monitored 78 bpm Respiratory Rate 16 br/min Systolic Blood Pressure 114 mmHg Diastolic Blood Pressure 76 mmHg Blood Pressure Location Right arm SpO2 99 % 10/11/2021 10:30 EDT Heart Rate Monitored 76 bpm Respiratory Rate 12 br/min LOW Systolic Blood Pressure 105 mmHg Diastolic Blood Pressure 72 mmHg Blood Pressure Location Right arm SpO2 98 % 10/11/2021 10:25 EDT Heart Rate Monitored 85 bpm Respiratory Rate 14 br/min Systolic Blood Pressure 99 mmHg Diastolic Blood Pressure 73 mmHg Blood Pressure Location Right arm SpO2 98 % 10/11/2021 10:23 EDT Temperature Temporal Artery 36.3 DegC Heart Rate Monitored 85 bpm Respiratory Rate 16 br/min Systolic Blood Pressure 108 mmHg Diastolic Blood Pressure 66 mmHg Blood Pressure Location Right arm SpO2 98 % Pain assessment: Controlled. General: Alert and oriented, No acute distress, No nausea. Adequate hydration.. Respiratory: Adequate air exchange.. Cardiovascular: stable. Neurologic: Normal sensory. Review / Management Condition: Stable. Assessment Anesthetic outcome No anesthetic complications noted. Plan Transfer/ Discharge: Condition stable. Normal [facility] Comment on above: Result Comment: Elec tronically Signed By: Jose Chanel Jr., DO\.br\Date and Time Signed: 10/11/21 11:29 EDT Progress Note-Physician Patient: TERA IGNACIO Age: 56 years Sex: Female : 1965 Associated Diagnoses: None Author: Jose Chanel Jr., DO Preoperative Information Anesthesia history: Patient History: No prior problems.. Re-eval prior to induction: Inital eval reviewed: No significant interval change. Anesthesia results Review of Systems Constitutional: Negative except as documented in history of present illness. Cardiovascular: Negative except as documented in history of present illness. Respiratory: Negative. Health Status Allergies: Allergic Reactions (Selected) Severity Not Documented Adhesive Bandage- Unknown. Latex- Unknown., Allergies (2) Active Reaction Adhesive Bandage Unknown Latex Unknown Current medications: (Selected) Inpatient Medications Ordered Lactated Ringers IV Anila 1000 mL 1,000 mL: 1,000 mL, IV, 100 mL/hr, Routine, Start date 10/11/21 8:28:00 EDT, 10 hour(s), Total volume (mL): 1,000 Sodium Chloride 0.9% IV Anila 1000 mL 1,000 mL: 1,000 mL, IV, 20 mL/hr, Routine, Start date 10/11/21 6:59:00 EDT, 50 hour(s), Total volume (mL): 1,000 Documented Medications Documented alprazolam 0.25 mg Tab: 0.25 mg = 1 tab(s), Oral, BID, PRN as needed for anxiety, Refills(s) 0 tamoxifen 20 mg Tab: 20 mg = 1 tab(s), Oral, Daily, Refills(s) 0 Histories Past Medical History: No active or resolved past medical history items have been selected or recorded. Family History: Primary malignant neoplasm of skin Father Hypertension Mother COPD Father Primary malignant neoplasm of prostate Father Cervical cancer Mother Procedure history: Biopsy of breast (879811247). Lumpectomy of left breast (7644455243). Partial mastectomy of left breast (8715665982). Tubal ligation (002512743). Tonsillectomy and adenoidectomy (795028854). Dilatation of pyloric stenosis using fluoroscopic guidance (3093371982). Social History Social & Psychosocial Habits Alcohol 09/06/2021 Risk Assessment: Denies Alcohol Use Substance Abuse 09/06/2021 Risk Assessment: Denies Substance Abuse Tobacco 09/06/2021 Tobacco Use: Former smoker, quit more Smokeless tobacco use: Never Type: Cigarettes Tobacco use per day: 0.5 Started at age: 19.0 Years Stopped at age: 20 Years . Physical Examination Respiratory: Lungs are clear to auscultation. Cardiovascular: Regular rhythm. Plan [place] [employer] (ASA) physical status classification: Class II. Anesthetic Preoperative Plan Anesthesia: General. . Anesthetic plan, risks, benefits, and alternatives discussed with the patient and/or family. Patient verbalized understanding. Normal [facility] Comment on above: Result Comment: Elec tronically Signed By: Jose Chanel Jr., DO\.br\Date and Time Signed: 10/11/21 08:29 EDT Ambulatory Visit Summaryon 0 09-06-2021 Ambulatory Visit Summary TERA IGNACIO :1965 Visit Date:09/06/2021 Ambulatory Visit Instructions Your Diagnosis Screening for malignant neoplasm of colon Your Care Team Attending Physician - DOROTHY BEAULIEU, Zac Rowland Primary Care Physician - SHANICE RODRIGUEZ MD This Is Your Medications List Contact prescribing physician if questions or concerns alprazolam (alprazolam 0.25 mg Tab) tamoxifen (tamoxifen 20 mg Tab) Procedures Performed Biopsy of breast, Dilatation of pyloric stenosis using fluoroscopic guidance, Lumpectomy of left breast, Partial mastectomy of left breast, Tonsillectomy and adenoidectomy, Tubal ligation. Discharge Vitals Heart Rate (Peripheral) 80 Respiratory Rate 16 Blood Pressure 108/74 Height 165.1 cm Height 165.1 cm Weight 92.7 kg Weight 92.7 kg BMI 34.01 What to do next Scheduled Follow-Up Appointments Thursday 10:00 AM EDT Where: [facility] Services Medications What How Much When Instructions Unchanged alprazolam (alprazolam 0.25 mg Tab) 1 Tablets By Mouth 2 times a day as needed for as needed for anxiety Contact prescribing physician if questions or concerns Unchanged tamoxifen (tamoxifen 20 mg Tab) 1 Tablets By Mouth Every day Contact prescribing physician if questions or concerns Allergies Adhesive Bandage (Unknown) Latex (Unknown) Problems Ongoing - Any problem that you are currently receiving treatment for. Basal cell carcinoma of upper extremity BMI 34.0-34.9,adult History of breast cancer Lumbar back pain with radiculopathy affecting lower extremity Screening for malignant neoplasm of colon Normal [facility] Consent for Procedure/Surger yon 09-06-2021 Consent for Procedure/Surgery [id number] 0CD:127 Normal [facility] Physician Referralon 022 Physician Referral [id number] 0CD:127 [facility] [facility] XR LSPINE MIN 4 VIEWSon 07-13 XR LSPINE MIN 4 VIEWS EXAM: XR LSPINE MIN 4 VIEWS Lumbar spine examination CLINICAL HISTORY: Back pain COMPARISON: None FINDINGS: Lumbar spine examination shows posterior elements are intact. Endplate osteophytes and facet hypertrophic changes are seen which are consistent with degenerative joint disease. No focal lesions are identified. IMPRESSION: Moderate lumbar degenerative changes Electronically authenticated by: LUZ MEDINA Date: 2021-08-09 13:37 Normal [facility] Vital Signs Date Time Vital Sign Value Performing Clinician Facility 04-27-2024 10:00-0500 Body mass index (BMI) [Ratio] 32.6 kg/m2 Sandra Qureshi DO Work Phone: [facility] 04-27-2024 10:00-0500 Body weight 91.63 kg Sandra Qureshi DO Work Phone: [facility] 04-27-2024 10:00-0500 Diastolic blood pressure 80 mm[Hg] Sandra Rinkes DO Work Phone: [facility] 04-27-2024 10:00-0500 Systolic blood pressure 122 mm[Hg] Sandra Rinkes DO Work Phone: [facility] 03-31-2024 15:01-0500 Body mass index (BMI) [Ratio] 32.6 kg/m2 Sandra Rinkes DO Work Phone: [facility] 03-31-2024 15:01-0500 Body weight 91.63 kg Sandra Rinkes DO Work Phone: [facility] 03-31-2024 15:01-0500 Diastolic blood pressure 68 mm[Hg] Sandra Rinkes DO Work Phone: [facility] 03-31-2024 15:01-0500 Systolic blood pressure 122 mm[Hg] Sandra Rinkes DO Work Phone: [facility] 03-02-2024 14:25-0500 Body mass index (BMI) [Ratio] 32.6 kg/m2 Sandra Rinkes DO Work Phone: [facility] 03-02-2024 14:25-0500 Body weight 91.63 kg Sandra Rinkes DO Work Phone: [facility] 03-02-2024 14:25-0500 Diastolic blood pressure 70 mm[Hg] Sandra Rinkes DO Work Phone: [facility] 03-02-2024 14:25-0500 Systolic blood pressure 124 mm[Hg] Sandra Rinkes DO Work Phone: [facility] 12-31-2023 15:36-0400 Body height 165.[address] [facility] 12-31-2023 15:36-0400 Body mass index (BMI) [Ratio] 33.4 kg/m2 [facility] 12-31-2023 15:36-0400 Body weight 91.[address] [facility] 12-31-2023 15:36-0400 Diastolic blood pressure 72 mm[Hg] [facility] 12-31-2023 15:36-0400 Heart rate 84 /min [facility] 12-31-2023 15:36-0400 Systolic blood pressure 105 mm[Hg] [facility] 04-25-2023 14:30-0500 Body height 165.1 cm Sandra Medina Other [employer] [facility] [employer] Other 04-25-2023 14:30-0500 Body mass index (BMI) [Ratio] 34.28 kg/m2 Sandra Medina Other [employer] Other 04-25-2023 14:30-0500 Body temperature 98.1 [degF] Sandra Medina Other [facility] Other 04-25-2023 14:30-0500 Body weight 93.44 kg Sandra Medina Other [facility] Other 04-25-2023 14:30-0500 Respiratory rate 16 /min Sandra Medina Other [facility] Other 04-25-2023 14:30-0500 SaO2% (BldA) [Mass fraction] 95 % Sandra Medina Other [facility] Other 09-06-2021 11:08-0400 Blood Pressure Location Zac JUAREZL [facility] 09-06-2021 11:08-0400 Diastolic blood pressure 74 mm[Hg] Zac NILL [facility] 09-06-2021 11:08-0400 Heart rate 80 /min Zac JUAREZL [facility] 09-06-2021 11:08-0400 Respiratory rate 16 /min Zac DE LA CRUZ [facility] 09-06-2021 11:08-0400 Systolic blood pressure 108 mm[Hg] Zac DE LA CRUZ [facility] Encounters Encounter Date Encounter Type Care Provider Facility Start: 09-08-2024 End: 09-08-2024 ambulatory GALE ENRIQUEZ Not Available Start: 09-08-2024 End: 09-08-2024 Office outpatient visit 15 minutes Gale Enriquez [employer] DI[employer]ITIAN[employer] Work Phone: [facility] Comment on above: Lentigines; Melanocytic nevus of trunk; Dermatofibroma; Seborrheic keratosis Start: 09-08-2024 End: 09-08-2024 Bamboo flowsheet Gale Todder [employer] HEALTH DIETITIAN[employer] Work Phone: [facility] Start: 09-08-2024 End: 09-08-2024 [employer] Gale Wallis Felter [employer] HE[employer] DIETITIAN[employer] Work Phone: [facility] Start: 04-27-2024 End: 04-27-2024 Postop follow up visit related to original px Sandra Boltonkes DO Work Phone: [facility] Comment on above: Postoperative examin ation Start: 04-27-2024 End: 04-27-2024 ambulatory SANDRA E RINKES Not Available Start: 04-26-2024 End: 04-26-2024 Postop follow up visit related to original px Gavin Coleman MD Work Phone: [facility] Comment on above: Bleeding internal he morrhoids (Primary Dx) Start: 04-26-2024 End: 04-26-2024 ambulatory GAVIN COLEMAN V Not Available Start: 04-07-2024 End: 04-12-2024 External Result Encounter Sandra E Rinkes DO Work Phone: [facility] External Department Unsolicited Start: 04-07-2024 End: 04-12-2024 External Result Encounter Sandra Qureshi DO Work Phone: [facility] External Department Unsolicited Start: 04-07-2024 End: 04-07-2024 ambulatory Gavin Coleman Facility:[facility] Start: 03-31-2024 End: 03-31-2024 Office outpatient visit 25 minutes Sandra Qureshi DO Work Phone: [facility] Comment on above: Postmenopausal bleed ing (Primary Dx); Thickened endometrium Start: 03-31-2024 End: 03-31-2024 ambulatory SANDRA QURESHI Not Available Start: 03-18-2024 End: 03-18-2024 ambulatory Shanice Rodriguez Facility:[facility] Start: 03-18-2024 Encounter for preprocedural cardiovascular examination Gavin Coleman [facility] Start: 2024 End: 2024 ambulatory GALE ENRIQUEZ Not Available Start: 03-02-2024 End: 03-02-2024 ambulatory SANDRA QURESHI Not Available Start: 03-02-2024 End: 03-02-2024 Patient encounter status Sandra Qureshi DO Work Phone: [facility] Healthcare Work Phone: Start: 03-02-2024 End: 03-02-2024 Periodic preventive med est patient 40-64yrs Sandra Qureshi DO Work Phone: [facility] Comment on above: Encounter for gyneco logical examination without abnormal finding (Primary Dx); Screening for malignant neoplasm of cervix; Encounter for screening mammogram for breast cancer; Postmenopausal bleeding Start: 03-02-2024 End: 03-02-2024 Bamboo flowsheet Sandra Boltonkes DO Work Phone: [facility] Start: 03-02-2024 End: 03-02-2024 Bamboo flowsheet Sandra Boltonkes DO Work Phone: [facility] Start: 12-31-2023 End: 12-31-2023 ambulatory [facility] Work Phone: Start: 12-31-2023 End: 12-31-2023 Patient encounter procedure [facility] Work Phone: Start: 10-13-2023 End: 10-13-2023 ambulatory GAVIN COLEMAN V Not Available Start: 05-01-2023 End: 05-01-2023 ambulatory Shanice Rodriguez Other [facility] Other Start: 05-01-2023 Telephone encounter Shanice Rodriguez [facility] Start: 04-25-2023 End: 04-25-2023 ambulatory Sandra Medina Other [facility] Other Start: 04-25-2023 Office outpatient vi sit 15 minutes Sandra Medina [facility] Start: 08-12-2022 Refill Betzaida Colon PA-C Work Phone: Hematology/Oncology Comment on above: Refill Request Start: 08-08-2022 Telephone encounter Sarai Reid [facility] Work Phone: Hematology/Oncology Comment on above: Medication Question Start: 12-09-2021 End: 12-09-2021 ambulatory LATRICE RENNER Facility:[facility] Start: 12-05-2021 End: 12-06-[address] DOCTOR MONTERO Facility:[facility] Start: 09-22-2021 Refill Renee Woods APRN.CNP Work Phone: Hematology/Oncology Comment on above: Refill Request Start: 09-06-2021 End: 09-06-2021 Patient encounter procedure Zac DE LA CRUZ [facility] Start: 08-09-2021 End: 08-10-[address] SHANICE RODRIGUEZ Facility:[facility] Procedures Date Procedure Procedure Detail Performing Clinician Start: 12-26-2024 PATHOLOGY REQUEST FO R LAB SHAMA Sandra Qureshi DO Work Phone: Start: 10-11-2021 Colonoscopy Sandra grijalva DO Work Phone: Start: 10-24-2020 Adult depression scr eening assessment Reneenadeen Woods [employer] HE[employer] DIETITIAN[employer] Work Phone: Biopsy of breast Zac JUAREZ Georgina Dilatation of pylori c stenosis using fluoroscopic guidance Zac JUAREZL Excision of part of left breast Zac NILL Ligation of fallopian tube Michelle DE LA CRUZ Tonsillectomy and adenoidectomy Zac JUAREZL Plan of Treatment Date Care Activity Detail Author Start: 10-12-2031 Screening for malign ant neoplasm of colon [facility] Start: 05-18-2029 Urine microalbumin profile DTAP,TDAP,TD (2 - Td or Tdap) [facility] Start: 02-28-2028 Screening for malign ant neoplasm of cervix [facility] Start: 09-07-2025 End: 09-07-2025 Patient encounter procedure 09/07/2025 3:40 PM EDT Office [facility] [address] [place] [phone] Gale Erniquez, PUBLIC HE[employer] DIETITIAN[employer] [address] [place] [address] [facility] Start: 03-23-2025 End: 03-23-2025 Patient encounter procedure 03/23/2025 4:00 PM EST [facility] [address] [place] [address] Sandra Qureshi DO [address] [place], [place] [id number] [facility] Start: 12-12-2024 Influenza vaccination Influenz a Vaccine (Season Ended) [facility] Start: 09-08-2024 End: 09-08-2024 Patient encounter procedure 09/08/2024 3:55 PM EDT Office Visit [facility] [address] [place] [phone] Gale Enriquez APRN-[employer] [address] [place] [address] [facility] Start: 04-27-2024 End: 04-27-2024 Patient encounter procedure [facility] Comment on above: Postoperative examin ation Start: 04-19-2024 End: 04-19-2024 Patient encounter procedure 04/19/2024 3:00 PM EST [facility] [address] [place] [address] Gavin Coleman MD [address] [place] [address] [facility] Start: 12-13-2023 Influenza vaccination Influenza Vacc ine (#1) [facility] Start: 12-12-2022 Influenza vaccination INFLUENZ A (Season Ended) [facility] Start: 04-13-2022 DEPRESSION ASSESSMENT DEPRESSION ASS ESSMENT [facility] Start: 12-12-2021 Influenza vaccination INFLUENZ A (Season Ended) [facility] Start: 10-24-2021 Adult depression screening assessment DEPRESSION SCREENING [facility] Start: 04-13-2021 COVID-19 VACCINE (3 - Booster for Pfizer series) COVID-19 VACCINE (3 - Booster for Pfizer series) [facility] Start: 2017 SHINGRIX VACCINE (1 of 2) SHINGRIX VACCINE (1 of 2) [facility] Start: 2012 COLOGUARD (FIT-DNA) COLOGUARD (FIT-D NA) [facility] Start: 2012 Colonoscopy COLONOSCOPY [facility] Start: 2012 COLORECTAL CANCER SCREENING COLORECTAL CANCER SCREENING [facility] Start: [address] COLONOGRAPHY [facility] Start: 2012 DIABETES SCREEN DIABETES SCREEN [facility] Start: 2012 FECAL OCCULT BLOOD FECAL OCCULT BLOO D [facility] Start: 2012 LIPID SCREEN LIPID SCREEN [facility] Start: 2012 SIGMOIDOSCOPY SIGMOIDOSCOPY [facility] Start: 2007 Mammography MAMMOGRAM [facility] Start: 2007 Screening for malign ant neoplasm of breast Mammogram [facility] Start: 1997 HPV TESTING HPV TESTING [facility] Start: 1988 PAP TESTING PAP TESTING [facility] Start: 1988 Screening for malign ant neoplasm of cervix Pap Smear [facility] Start: 1986 SHINGRIX VACCINE (1 of 2) SHINGRIX VACCINE (1 of 2) [facility] Start: 1986 Urine microalbumin profile DTAP,TDAP,TD (1 - Tdap) [facility] Start: 1985 HEPATITIS C SCREENING HEPATITIS C SC REENING [facility] Start: 1985 HIV SCREENING HIV SCREENING [facility] Start: 1973 PNEUMOCOCCAL (1 - PCV) PNEUMOCOCCAL (1 - PCV) [facility] Start: 1972 COVID-19 VACCINE (#1) COVID-19 VACCI NE (#1) [facility] Start: 1967 HEPATITIS B (1 of 3 - 3-dose series) HEPATITIS B (1 of 3 - 3-dose series) [facility] Start: 1967 Screening for malign ant neoplasm of colon [facility] DXA Skeletal system.axial Views for bone density [facility] MG Breast - bilatera l Screening [facility] SENDOUT TEST MISCELLANEOUS [facility] SENDOUT TEST MISCELLANEOUS [facility] Lab Routine Screening for malignant neoplasm of cervix Ordered: 03/02/20[address] [facility] Work Phone: Comment on above: Ordered: 03/02/2024 [facility] Immunizations Immunization Date Immunization Notes Care Provider Abraham ritter 05-18-2019 tetanus toxoid, redu amrit diphtheria toxoid, and acellular pertussis vaccine, adsorbed Sarai Norris [facility] Work Phone: [facility] 02-03-2019 influenza, injectabl e, quadrivalent, preservative free Sarai Norris [facility] Work Phone: [facility] 02-03-2019 influenza virus vacc ine, unspecified formulation Sandra Qureshi DO Work Phone: [facility] 02-03-2018 Influenza, injectabl e, Madin Custer Canine Kidney, preservative free, quadrivalent Renee Woods PUBLIC HEALTH DIETITIAN.[employer] Work Phone: [facility] Payers Date Payer Category Payer Self-pay [id number] 2022 Private Health Insurance [id number] 2020 Private Health Insurance JARRETISAIAH SAENZ OA [id number] 2020-Present [phone] [address] [place] [address] Open Access [id number] 2020 Private Health Insurance [id number] 2020 Private Health Insurance [id number] 1967 Unknown [id number] 1967 Unknown [id number] 93 1967 Unknown [id number] 259 1967 Unknown [id number] 259 1967 Unknown [id number] 259 1967 Unknown [id number] 259 1967 Unknown [id number] 259 1967 Unknown [id number] 259 1967 Unknown [id number] 259 1959 Private Health Insurance [id number] Unknown [id number] 31 Unknown [id number] 31 Social History Date Type Detail Facility Start: 09-06-2021 Tobacco smoking status Ex-smoker (finding) [facility] Tobacco smoking status Never [facility] Start: 02-26-2023 End: 09-08-2024 Sex Assigned At Female [facility] Start: 07-06-2012 End: 04-29-2023 Tobacco smoking status MIIS Never smoked tobacco [facility] Start: 07-06-2012 End: 04-29-2023 Tobacco use and exposure Smokeless tobacco non-user [facility] Start: 10-24-2020 End: 09-19-2024 Alcohol intake Current drinker of alcohol (finding) [facility] Start: 1965 Sex Assigned At Not on file [facility] History of tobacco use Passive smoker [facility] Start: 1965 Sex Assigned At Female [facility] Start: 02-26-2023 End: 09-08-2024 History of Social function [facility] How often to you hav e a drink containing alcohol? 2-3 time sa week [facility] How many standard drinks containing alcohol do you have on a typical day? 3 or 4 [facility] How often do you hav e 6 or more drinks on 1 occasion? Never [facility] Start: 02-26-2023 Alcohol Comment Caffeine intak e: none rare [facility] Start: 02-27-2023 Gender identity Identifies as female gender (finding) [facility] NEGATED: Highlighted row [facility] Clinical Notes 09-06-2021 to 09-08-2024 Gale Enriquez APRN-CRISTINE - 09/08/2024 3:55 PM Teresita Qureshi, DO - 04/27/2024 10:00 AM Kaye Cuba MD - 04/26/2024 3:15 PM Thaddeus Qureshi, DO - 03/31/2024 3:00 PM EST Note Date & Type Note Facility 09-08-2024 History of Presen t illness Narrative Skin Check Location: Patient requests a full body skin examination Dermatologic history: no history of skin cancer, no history of atypical moles Last visit: 1 year ago Lesions: Location: Left neck Duration: few months Quality: denies bleeding Modifying factors: aggravated by picking Associated symptoms: rough, darkening Treatments: none All pertinent medical history, medications, and allergies were reviewed. General Exam: alert, oriented to person, place, and time, normal affect, well appearing Unaccompanied Areas not examined despite medical recommendation: Scalp, Examined , exam limited by hair Right leg Examined Head, Face Examined Left leg Examined Neck Examined Right foot Examined Chest Examined Left foot Examined Back Examined Buttocks Examined Abdomen Examined Digits,nails: Examined Right arm Examined Left arm Examined Lymphatics: Not examined Hands Examined Skin Exam 1. LENTIGINES (3) Head - Anterior (Face), Left Shoulder - Posterior, Right Shoulder - Posterior Scattered solares macules in sun-exposed areas. The patient was informed that lentigines are benign pigmented lesions that occur on sun-exposed and sun-damaged skin. No treatment is necessary. Recommended regular use of broad spectrum sunscreen SPF 30 or higher 2. MELANOCYTIC NEVUS OF TRUNK Generalized Scattered benign appearing, regular brown to light brown melanocytic papules and macules with similar morphology Counseled regarding these benign growths. Rarely, a nevus can develop into malignant melanoma, so any changing nevi should be promptly re-evaluated. 3. DERMATOFIBROMA Right Ankle - Posterior Firm brown papule that dimples with lateral pressure. Discussed that these are benign scars on the skin. If lesion is changing/symptomatic, return to office to have lesion re-evaluated 4. SEBORRHEIC KERATOSIS Neck - Anterior Brown verrucous papule, inflamed Patient was counseled regarding these benign growths. Removal is normally not necessary, but they may be removed if they are symptomatic or for cosmetic reasons. Patient declines treatment today Next Visit: 1 year documented in this encounter [facility] 04-27-2024 History of Presen t illness Narrative Images from the original note were not included. Sandra Qureshi D.O. Obstetrics and Gynecology Patient: Tera Ignacio : 1965 (59 y.o.) Exam Date: 04/27/2024 Reason for Visit - Chief Complaint Patient presents with Post-op Visit 04/07/24 Hyst D&C. Denies vaginal bleeding/spotting. Denies bowel/bladder concerns. Denies pelvic pain/cramping. Visit Vitals BP 122/80 Wt 202 lb BMI 32.60 kg/m Smoking Status Never BSA 2.07 m Allergies Allergen Reactions Latex Other Reaction(s): Unknown Wound Dressings Hives Wound Dressing Adhesive Rash and Itching History of Present Illness, Associated Treatments and Results - OB History Para Term AB Living 2 2 2 0 0 2 SAB IAB Ectopic Multiple Live Births 0 0 0 0 2 # Outcome Date GA Lbr Reinaldo/2nd Weight Sex Type Anes PTL Lv 2 Term 1 Term Obstetric Comments Pap smear 02/27/23 wnl, Mammogram w/ Itzkowitz Per Pt Review of Systems - Const: Denies appetite change, fever, chills. Allergy: Denies medication reaction. Ocular: Denies visual acuity change. ENT: Denies hearing change. Endoc: Denies weight loss. Resp: Denies dyspnoea, wheezing. Cardiac: Denies angina, palpitations. GI: Denies nausea, vomiting. Haem: Denies bleeding. : Denies incontinence. MSK: Denies arthralgias, joint oedema. Derm: Denies rash, hair loss. Neuro: Denies ataxia, tremor. Also see HPI for elements of ROS documented therein and for details of positive findings, which shall supersede the foregoing. Medication Documentation Review Audit Reviewed by Renita Shah MA ([employer]) on 04/27/24 at 1000 Medication Order Taking? Sig Documenting Provider Last Dose Status Ca Phosphate-Cholecalciferol 250-10 MG-MCG chewable tablet [id number] No Chew. Sandra Qureshi DO Taking Active calcium carbonate (Os-Dewayne) 1250 (500 Ca) MG chewable tablet [id number] Daily Sandra Qureshi DO Active cetirizine (ZyrTEC) 10 MG tablet [id number] 1 tablet Sandra Qureshi DO Active Past Medical History: Diagnosis Date Abnormal Pap smear of cervix Breast cancer ([facility]) History of medical problems 1994 Dysplasia Personal history of other medical treatment T&A Pyloric stenosis Past Surgical History: Procedure Laterality Date BAND HEMORRHOIDECTOMY COLPOSCOPY with biopsy HYSTEROSCOPY 04/07/2024 Hyst D&C LASIK MASTECTOMY, PARTIAL Left lumpectomy OTHER SURGICAL HISTORY Cryo;Disease:Dysplasia OTHER SURGICAL HISTORY Repair 6 wks old;Disease:Pyloric Stenosis TRIGGER FINGER RELEASE Left 11/13/2021 Dr Otoole TUBAL LIGATION TYMPANOSTOMY Multiple time Family History Problem Relation Name Age of Onset Cervical cancer Mother Hypertension Mother Cancer Father Physical Exam - General appearance, mentation, extraocular movements, facial strength and movement, hearing, upper and lower extremity strength and tone, sensation to gross testing, coordination, and gait are normal or at baseline unless noted below. General: Alert, cooperative, no distress, appears stated age Head: Normocephalic, without obvious abnormality, atraumatic Eyes: sclera anicteric Ears: no obvious hearing deficit Skin: Warm and dry Heart: Regular rate Lungs: Respirations unlabored Extremities normal, atraumatic, no cyanosis or edema Diagnoses and all orders for this visit: Postoperative examination Reviewed pathology and operative pictures with patient. All pathology WNL. Patient to call with any further bleeding. ICD-10-CM 1. Postoperative examination Z09 documented in this encounter [facility] 04-26-2024 History of Presen t illness Narrative Images from the original note were not included. Patient is status post banding of 2 internal hemorrhoids. She thinks she may have noticed past skin least 1 of them in the toilet. The patient is eating. She is moving her bowels. She denies rectal pain. She has not noticed blood in the stool. She has started taking her fiber pills again. On examination, she is awake alert and in no acute distress. External examination of the anorectal region with Valsalva reveals no abnormalities. 1. Bleeding internal hemorrhoids Patient can continue with a high-fiber diet and drinking plenty of fluids. She will be discharged from the office and continue to follow with her primary care physician. documented in this encounter [facility] 03-31-2024 History of Presen t illness Narrative Images from the original note were not included. Sandra Qureshi D.O. Obstetrics and Gynecology Patient: Tera Ignacio : 1965 (59 y.o.) Exam Date: 03/31/2024 Reason for Visit - Chief Complaint Patient presents with Follow-up Pt presents for US follow up. Denies any current vaginal bleeding/spotting. Denies concerns. Visit Vitals BP 122/68 Wt 202 lb BMI 32.60 kg/m Smoking Status Never BSA 2.07 m Allergies Allergen Reactions Latex Other Reaction(s): Unknown Wound Dressings Hives Wound Dressing Adhesive Rash and Itching History of Present Illness, Associated Treatments and Results - OB History Para Term AB Living 2 2 2 0 0 2 SAB IAB Ectopic Multiple Live Births 0 0 0 0 2 # Outcome Date GA Lbr Reinaldo/2nd Weight Sex Type Anes PTL Lv 2 Term 1 Term Obstetric Comments Pap smear 02/27/23 wnl, Mammogram w/ Lucila Per Pt Review of Systems - Const: Denies appetite change, fever, chills. Allergy: Denies medication reaction. Ocular: Denies visual acuity change. ENT: Denies hearing change. Endoc: Denies weight loss. Resp: Denies dyspnoea, wheezing. Cardiac: Denies angina, palpitations. GI: Denies nausea, vomiting. Haem: Denies bleeding. : Denies incontinence. MSK: Denies arthralgias, joint oedema. Derm: Denies rash, hair loss. Neuro: Denies ataxia, tremor. Also see HPI for elements of ROS documented therein and for details of positive findings, which shall supersede the foregoing. Medication Documentation Review Audit Reviewed by Renita Shah MA ([employer]) on 03/31/24 at 1501 Medication Order Taking? Sig Documenting Provider Last Dose Status Ca Phosphate-Cholecalciferol 250-10 MG-MCG chewable tablet [id number] No Chew. Sandra Qureshi DO Taking Active calcium carbonate (Os-Dewayne) 1250 (500 Ca) MG chewable tablet [id number] Daily Sandra Qureshi DO Active cetirizine (ZyrTEC) 10 MG tablet [id number] 1 tablet Sandra Qureshi DO Active Past Medical History: Diagnosis Date Abnormal Pap smear of cervix Breast cancer (CMS/[facility]) History of medical problems 1994 Dysplasia Personal history of other medical treatment T&A Pyloric stenosis Past Surgical History: Procedure Laterality Date COLPOSCOPY with biopsy LASIK MASTECTOMY, PARTIAL Left lumpectomy OTHER SURGICAL HISTORY Cryo;Disease:Dysplasia OTHER SURGICAL HISTORY Repair 6 wks old;Disease:Pyloric Stenosis TRIGGER FINGER RELEASE Left 11/13/2021 Dr Otoole TUBAL LIGATION TYMPANOSTOMY Multiple time Family History Problem Relation Name Age of Onset Cervical cancer Mother Hypertension Mother Cancer Father Physical Exam - General appearance, mentation, extraocular movements, facial strength and movement, hearing, upper and lower extremity strength and tone, sensation to gross testing, coordination, and gait are normal or at baseline unless noted below. General: Alert, cooperative, no distress, appears stated age Head: Normocephalic, without obvious abnormality, atraumatic Eyes: sclera anicteric Ears: no obvious hearing deficit Skin: Warm and dry Heart: Regular rate Lungs: Respirations unlabored Abdomen: Soft, non-tender, no masses, no organomegaly Extremities normal, atraumatic, no cyanosis or edema Neurologic: alert and oriented Psych: cooperative with exam Diagnoses and all orders for this visit: Postmenopausal bleeding Thickened endometrium Reviewed pelvic US at length with patient. Endometrium measuring 10.7mm- would want sampling. Appearance of endometrium is heterogenous- would recommend D&C, hysteroscopy. R/B/A reviewed, consent obtained. Will schedule. ICD-10-CM 1. Postmenopausal bleeding N95.0 documented in this encounter [facility] 03-02-2024 History of Presen t illness Narrative Images from the original note were not included. Sandra Qureshi D.O. Obstetrics and Gynecology Patient: Tera Ignacio : 1965 (58 y.o.) Yearly Wellness Exam Date: 03/02/2024 Reason for Visit - Chief Complaint Patient presents with Gynecologic Exam Pt states had vaginal bleeding from 02/08-02/15. Denies cramping. Pt states first couple of days were light then became bright red. Pt c/o hemorrhoids. Pt is scheduled to see someone for Hemorrhoid removal. Pt c/o rectal itching, states been going on for a couple of months. Pt c/o wt. Gain. Pt states she notice she is a stress eater. Pt Is up to date with Mammogram, Had done at [place]. Visit Vitals BP 124/70 Wt 202 lb BMI 32.60 kg/m Smoking Status Never BSA 2.07 m Allergies Allergen Reactions Latex Other Reaction(s): Unknown Wound Dressings Hives Wound Dressing Adhesive Rash and Itching History of Present Illness, Associated Treatments and Results - OB History Para Term AB Living 2 2 2 0 0 2 SAB IAB Ectopic Multiple Live Births 0 0 0 0 2 # Outcome Date GA Lbr Reinaldo/2nd Weight Sex Type Anes PTL Lv 2 Term 1 Term Obstetric Comments Pap smear 02/27/23 wnl, Mammogram w/ Lucila Per Pt Review of Systems - General: Chills denies. Allergy/Immunology: Rash Denies. ENT: Denies Difficulty swallowing. Endocrine: Denies Cold intolerance denies. Heat intolerance denied. Respiratory: Denies Chest pain denies. Shortness of breath denies. Breast: Denies Bloody nipple discharge denies. Breast lump denies. Cardiovascular: Denies Chest pain. Gastrointestinal: Abdominal pain denies. Blood in stool denies. Hematology: Easy bruising denies. Prolonged bleeding denies. Women Only: Breast lump denies. Vaginal bleeding between periods is denied. Vaginal discharge/itching denied. Genitourinary: Blood in urine denies. Painful urination denies. Incontinence denies. Skin: Hair changes. Neurologic: Seizures denied. Stroke denies. Psychiatric: Anxiety denies. Depressed mood denies. Medication Documentation Review Audit Reviewed by Renita Shah MA ([employer]) on 03/02/24 at 1422 Medication Order Taking? Sig Documenting Provider Last Dose Status Ca Phosphate-Cholecalciferol 250-10 MG-MCG chewable tablet [id number] Chew. Sandra Qureshi, DO Active calcium carbonate (Os-Dewayne) 1250 (500 Ca) MG chewable tablet [id number] Yes Daily Sandrasheela Qureshi, DO Active cetirizine (ZyrTEC) 10 MG tablet [id number] Yes 1 tablet Sandra Allie Quershi, DO Active Discontinued 03/02/24 1422 Past Medical History: Diagnosis Date Abnormal Pap smear of cervix Breast cancer ([facility]) History of medical problems 1994 Dysplasia Personal history of other medical treatment T&A Pyloric stenosis Past Surgical History: Procedure Laterality Date COLPOSCOPY with biopsy LASIK MASTECTOMY, PARTIAL Left lumpectomy OTHER SURGICAL HISTORY Cryo;Disease:Dysplasia OTHER SURGICAL HISTORY Repair 6 wks old;Disease:Pyloric Stenosis TRIGGER FINGER RELEASE Left 11/13/2021 Dr Otoole TUBAL LIGATION TYMPANOSTOMY Multiple time Family History Problem Relation Name Age of Onset Cervical cancer Mother Hypertension Mother Cancer Father Physical Exam - General appearance, mentation, extraocular movements, facial strength and movement, hearing, upper and lower extremity strength and tone, sensation to gross testing, coordination, and gait are normal or at baseline unless noted below. General Examination: GENERAL APPEARANCE: alert oriented well developed, well nourished. HEAD: normocephalic atraumatic. EYES: sclera anicteric. EARS: no obvious hearing deficit. SKIN: warm and dry. HEART: regular rate and rhythm. LUNGS: clear to auscultation bilaterally. CHEST: axillary nodes grossly normal. BREASTS: no masses palpable bilaterally, normal nipples bilaterally. ABDOMEN: soft, nontender, nondistended, no masses palpable. BACK: no costovertebral angle tenderness, no obvious scoliosis/kyphosis. FEMALE GENITOURINARY: atrophic vaginal mucosa, cervix absent of lesions, nontender, uterus AV, mobile, ovaries nonpalpable and nontender. EXTREMITIES: no edema. NEUROLOGIC: alert and oriented. PSYCH: cooperative with exam. Diagnoses and all orders for this visit: Encounter for gynecological examination without abnormal finding Screening for malignant neoplasm of cervix - SENDOUT TEST MISCELLANEOUS [facility] Encounter for screening mammogram for breast cancer Postmenopausal bleeding Pap, pelvic and breast exam completed. Findings of today's exam discussed with the patient. Continue MSBE. Ca/Vit D recommendations reviewed with the patient. The patient is to contact the office with any changes to her gynecological condition. The patient is to return in 1 year or as needed Discussed PMB at length- will need pelvic US MANFRED. Discussed possible need for sampling of endometrial lining due to PMB. Patient was on Tamoxifen for 10 years- stopped last year. ICD-10-CM 1. Encounter for gynecological examination without abnormal finding Z01.419 2. Screening for malignant neoplasm of cervix Z12.4 SENDOUT TEST MISCELLANEOUS [facility] 3. Encounter for screening mammogram for breast cancer Z12.31 4. Postmenopausal bleeding N95.0 documented in this encounter [facility] 04-25-2023 Evaluation note Encounter Date Diagnosis Assessment Notes Apr, Worms in stool (ICD-10 - B83.9) Discussed diagnosis with patient today in office. Differential diagnosis includes hookworms versus pinworms. Will send in Rx of albendazole to cover for both. Advised to use as directed. Repeat dose in 2 weeks if symptoms do not improve. Advised patient that she needs to wash bedding frequently, recommended good handwashing, avoid biting nails. Patient to follow-up with PCP if symptoms do not improve. Immediate evaluation in ER for blood in stool, abdominal pain, fevers, changes in bowel movements, or if any new or concerning symptoms arise. Patient verbalizes understanding and is agreeable with treatment plan Apr, Other Pinworms material was printed, Pinworm home care material was printed [facility] Other 05-01-2023 Miscellaneous Notes* Telephone Encounter - Betzaida Colon PA-C - 08/11/2022 2:55 PM EDT I'd prefer she finish one more month of therapy Betzaida Colon PA-C * Telephone Encounter - Sarai Norris RP - 08/08/2022 11:21 AM EDT I received a prior authorization request for Tera's tamoxifen, from what I see she should be done with her 10 years next month. OK for her to stop now? Please advise, if I should move forward with PA. Thank you Dale Norris, PharmD, BCOP documented in this encounterC[facility] NoteHNO ID: [id number] Author: Betzaida Colon PA-C Service: ? Author Type: Physician Warehouse Foreman Type: Progress Notes Filed: 12/09/2021 2:38 PM Note Text: (Elements copied from Dr. Renner's note dated October 24, 2020, have been reviewed and updated where appropriate, and all reflect current assessment and medical decision making during today's encounter, December 09, 2021) CHIEF COMPLAINT: stage 1 left breast cancer HISTORY OF PRESENT ILLNESS: Tera Ignacio is a 55 year old woman who presents in follow up of above. Diagnosed 06/2012, treated with left lumpectomy and radiation. Tumor was [id number]. ER and [place] receptors were strongly ( >90 %) positive, HER 2 jun was negative by FISH with the score 1.1. KI 67 was 5-10 %. Oncotype score was 19. Started Tamoxifen 08/2012. Remains on Tamoxifen and tolerates it well. Minor hot flashes. No vaginal bleeding or signs of clotting. Last mammogram was in November 2021 and negative. She did have surgery on her left trigger thumb earlier this month and it is healing well. PAST MEDICAL HISTORY Diagnosis Date Breast cancer (HCC) PAST SURGICAL HISTORY Procedure Laterality Date BREAST BIOPSY Review of Social History includes: Social History Tobacco Use Smoking status: Never Smokeless tobacco: Never Substance Use Topics Alcohol use: Yes Drug use: No No family history on file. Current Outpatient Medications Medication Sig tamoxifen (NOLVADEX) 20 mg tablet TAKE 1 TABLET BY MOUTH EVERY DAY calcium phosphate-vitamin D3 (CALTRATE GUMMY BITES) 250-400 mg-unit chew Take by mouth. No current facility-administered medications for this visit. REVIEW OF SYSTEMS: Constitutional: No fever, night sweats or unwanted weight loss. Respiratory: No cough or hemoptysis. NO dyspnea Cardiovascular: No chest pain or palpitations. NO leg swelling GI: No nausea, vomiting, diarrhea or GI bleed. Skin: No rash or lesions. Neurologic: No focal weakness or sensory changes. Psychiatric: Normal affect. Denies mood swings Hematopoietic: No easy bruising or enlarged lymphadenopathy. : No frequency or dysuria. No recent menses, recent testing as noted PHYSICAL EXAMINATION: BP 132/68 Pulse 74 Temp 36.1 ?C (96.9 ?F) (Temporal) Resp 18 Ht 165.1 cm (5' 5 ) Wt 94 kg (207 lb 3.2 oz) LMP 10/12/2020 SpO2 99% BMI 34.48 kg/m? General: Alert and oriented, no distress, pleasant and cooperative. Heart: Regular, normal S1 and S2, no murmurs, rubs, or gallops Lungs: Clear to auscultation bilaterally Abdomen: Benign Extremities: Feet/ankles without edema, posterior tibial pulses full and symmetrical Breast: bilateral breast exam without masses, nodules or skin lesions 12/05/21 Mammogram 08/04/17 Mammo Pathology 06/2012 56 year old woman with history of stage 1 left breast cancer. Currently on tamoxifen. Tolerating well with only mild hot flashes. Has elected to proceed with 10 years of Tamoxifen 1. History of Left Breast Cancer: Will continue tamoxifen and finish 10 years in August 2022, then stop. Mammogram in November 2022 See us in 1 year for follow up. CINDI Hussein-[facility]07-06-2022 Note [id number]:[id number] 09-23-2021 Miscellaneous Notes* Telephone Encounter - Renee Woods APRN.CNP - 09/23/2021 11:41 AM EDT The following approved medication requests have been transmitted electronically. Signed Prescriptions Disp Refills tamoxifen (NOLVADEX) 20 mg tablet 90 tablet 3 Sig: TAKE 1 TABLET BY MOUTH EVERY DAY REAL: No Authorizing Provider: RENEE WOODS APRN.CNP documented in this encounterC[facility]05-27-2022 NoteChief Complaint consultation for screening colonoscopy HPI Staff 56 year old female presents on consultation from Dr. Rodriguez for screening colonoscopy. Denies abdominal or rectal pain. No rectal bleeding or change in bowel habits. Denies nausea or vomiting. No unexplained weight loss. Never had colonoscopy in the past. No known family history of colon cancer. History of Present Illness 56 yo female with h/o breast cancer, referred for colorectal screening; denies change in bms or blood in stools; no abdominal complaints; denies asa or NSAID use, no SBE prophylaxis; no previous abdominal operations; no fmhx of GI malignancy or IBD; no tobacco use. Review of Systems PHQ Score Initial Depression Screen Score: 0 ROS - Provider Constitutional: no fever, no sweats, no weight loss. Eyes: yes glasses, no blurred vision, no visual loss. ENMT: no dentures, no hoarseness, no swallowing difficulties, no hearing loss, no ear infection(s),no nose bleeds. Cardiovascular: normal blood pressure, no chest pain, regular heartbeat, no heart murmur. Respiratory: no shortness of breath, no cough, no asthma, no wheezing. Gastrointestinal: no nausea, no vomiting, no diarrhea, no constipation, no blood in stool, no change in bowel habits, no abdominal pain, no hepatitis. Genitourinary: no kidney stones, no urine infection, no dysuria. Musculoskeletal: no pain, no weakness. Skin: no changing moles, no rash, no skin lumps. Neurologic: no seizures, no epilepsy, no headache. Psychiatric: no emotional or psychiatric problem. Heme/Lymph: no bleeding problems, no anemia, no blood clots, no transfusions. Allergy/Immunologic: no swollen lymph nodes/glands, no IV drug abuse. Other: Additional ROS info: Except as noted in the above Review of Systems and in the History of Present Illness, all other systems have been reviewed and are negative or noncontributory. Physical Exam Vitals & Measurements HR: 80(Peripheral) RR: 16 BP: 108/74 HT: 165.1 cm HT: 165.1 cm WT: 92.7 kg WT: 92.7 kg BMI: 34.01 HEENT: normal conjunctiva, sclera clear, no scleral icterus, EOM intact, PERRLA, oral mucosa moist without lesions. Neck: trachea midline, no mass, symmetric, no thyromegaly or nodules, no adenopathy Respiratory: lungs CTA, respirations non labored. Cardiovascular: regular rate and rhythm, no murmur, no pedal edema or varicosities. Gastrointestinal: soft, non distended, no tenderness, no masses, no palpable hernias, diastasis recti no, no hepatosplenomegaly; normal bs Lymphatic: no cervical adenopathy, Musculoskeletal: normal gait, digits and nails without infection, nodes, cyanosis, clubbing. Skin: no rashes, no lesions, no ulcers, no subcutaneous nodules, induration. Psychiatric/Neuro: oriented to time, place, person, judgement normal, affect appropriate for age, insight intact, no focal deficits. Tests: review of old records completed, Discussed surgical options, risks, and possible complications with patient. Assessment/Plan 1. Screening for malignant neoplasm of colon (Z12.11: Encounter for screening for malignant neoplasm of colon) plan colonoscopy under anesthesia, informed consent obtained. Follow-up No qualifying data available Problem List/Past Medical History Ongoing Basal cell carcinoma of upper extremity BMI 34.0-34.9,adult History of breast cancer Lumbar back pain with radiculopathy affecting lower extremity Screening for malignant neoplasm of colon Historical No qualifying data Procedure/Surgical History Biopsy of breast, Dilatation of pyloric stenosis using fluoroscopic guidance, Lumpectomy of left breast, Partial mastectomy of left breast, Tonsillectomy and adenoidectomy, Tubal ligation. Medications alprazolam 0.25 mg Tab, 0.25 mg= 1 tab(s), Oral, BID, PRN tamoxifen 20 mg Tab, 20 mg= 1 tab(s), Oral, Daily Allergies Adhesive Bandage (Unknown) Latex (Unknown) Social History Alcohol - Denies Alcohol Use, 09/06/2021 Substance Abuse - Denies Substance Abuse, 09/06/2021 Tobacco Former smoker, quit more than 30 days ago Tobacco Use:. Never Smokeless Tobacco Use:. Cigarettes, 0.5 per day. Started age 19.0 Years. Stopped age 20 Years., 09/06/2021 Family History COPD: Father. Cervical cancer: Mother. Hypertension: Mother. Primary malignant neoplasm of prostate: Father. Primary malignant neoplasm of skin: Father.[facility] CenterComment on above:Result Comment: Electronically Signed By: DOROTHY BEAULIEU, Zac Shields\Date and Time Signed: 09/06/21 12:18 EDTEvaluation + Plan note Future Appointments Appointment Date:10/11/2021 10:00:00 AM Scheduled [facility] Evaluation noteNo InformationNoM[facility] Other Evaluation note* Diagnosis Onset Date Resolution Status Menopause acute Screening mammogram for breast cancer [facility] Work Phone: Evaluation note* Diagnosis Encounter for gynecological examination without abnormal finding- Primary Screening for malignant neoplasm of cervix Screening for malignant neoplasm of the cervix Encounter for screening mammogram for breast cancer Postmenopausal bleeding documented in this encounter [facility]* Diagnosis Postmenopausal bleeding- Primary Thickened endometrium Nonspecific (abnormal) findings on radiological and other examination of genitourinary organs documented in this encounter [facility]* Diagnosis Bleeding internal hemorrhoids- Primary Internal hemorrhoids with other complication Postoperative examination Follow-up examination, following unspecified surgery documented [facility]* Diagnosis Postoperative examination Follow-up examination, following unspecified surgery documented in this encounter [facility]* Diagnosis Lentigines Melanocytic nevus of trunk Benign neoplasm of skin of trunk, except scrotum Dermatofibroma Benign neoplasm of skin, site unspecified Seborrheic keratosis documented in this encounter [facility] HealthcareHistory general Narrative - Reported* Type Description Date Medical History Lumbar pain Surgical History Breast Biopsy - Left Hospitalization History No know Hospitalization history [facility] Other Hospital course Narrative No data available for this section [facility] Discharge instructions No data available for this section [facility] Summary Purpose Family History Relationship Condition Age at Onset Recorded Date/T yudelka father Unknown Advance Directives Advance Directive Response Recorded Date/ Time Advance Directives No December 3:25pm Chief Complaint and Reason for Visit Chief Complaint wellness Reason for Visit Menopause Screening mammogram for breast cancer Additional Source Comments Source Comments (unrecognize d section and content) In the event this informatio n is protected by the Federal Confidentiality of Alcohol and Drug Abuse Patient Records regulations: The Federal rules restrict any use of the information to criminally investigate or prosecute any alcohol or drug abuse patient.[facility] HospitalIn the event this information is protected by the Federal Confidentiality of Alcohol and Drug Abuse Patient Records regulations: The Federal rules restrict any use of the information to criminally investigate or prosecute any alcohol or drug abuse patient.[facility] HospitalIn the event this information is protected by the Federal Confidentiality of Alcohol and Drug Abuse Patient Records regulations: The Federal rules restrict any use of the information to criminally investigate or prosecute any alcohol or drug abuse patient.[facility] Reason for Visit (unrecogniz ed section and content) Reason Comments Refill Request Reason Comments Medication Question Reason Comments Gynecologic Exam Pt states had vagina l bleeding from 02/08-02/15. Denies cramping. Pt states first couple of days were light then became bright red. Pt c/o hemorrhoids. Pt is scheduled to see someone for Hemorrhoid removal. Pt c/o rectal itching, states been going on for a couple of months. Pt c/o wt. Gain. Pt states she notice she is a stress eater. Pt Is up to date with Mammogram, Had done at [place]. Reason Comments Follow-up Pt presents for US f ollow up. Denies any current vaginal bleeding/spotting. Denies concerns. Reason Comments Post-op 1st po Hemorrhoidal banding x2 Reason Comments Post-op Visit 04/07/24 Hyst D&C. D enies vaginal bleeding/spotting. Denies bowel/bladder concerns. Denies pelvic pain/cramping. Reason Comments Skin Check Care Teams (unrecognized sec tion and content) [employer] Relationship Specialty Start Date End Date Shanice Rodriguez MD [address] [place] [address] PCP - General Family Practice 06/30/12 [employer] Operator Relationship Specialty Start Date End Date Shanice Rodriguez MD [address] [place] [address] PCP - General Family Medicine 06/30/12 [employer] Operator Relationship Specialty Start Date End Date Shanice Rodriguez MD [address] [place] [address] PCP - General Family Medicine 06/30/12 Team Status: Active Member Role Status Dates Shanice Rodriguez MD Primary Care Provider Active Team Status: Inactive Member Role Status Dates Shanice Rodriguez MD Primary Care Provide r, Attending Provider Active Start: December 31, 2023 End: December 31, 2023 [employer] Operator Relationship Specialty Start Date End Date Shanice Rodriguez MD [address] [place] [address] PCP - General Family Medicine 02/27/23 [employer] Operator Relationship Specialty Start Date End Date Shanice Rodriguez MD [address] [place] [address] PCP - General Family Medicine 02/27/23 [employer] Operator Relationship Specialty Start Date End Date Shanice Rodriguez MD [address] [place] [facility] [phone] PCP - General Family Medicine 02/27/23 [employer] Operator Relationship Specialty Start Date End Date Shanice Rodriguez MD [address] [place] [facility] [phone] PCP - General Family Medicine 02/27/23 [employer] Operator Relationship Specialty Start Date End Date Shanice Rodriguez MD [address] [place] [facility] [phone] PCP - General Family Medicine 02/27/23 [employer] Operator Relationship Specialty Start Date End Date Shanice Rodriguez MD [address] [place] [facility] [address] PCP - General Family Medicine 02/27/23 [employer] Operator Relationship Specialty Start Date End Date Shanice Rodriguez MD [address] [place] [phone] PCP - General Family Medicine 02/27/23 [employer] Operator Relationship Specialty Start Date End Date Shanice Rodriguez MD [address] [place] [id number] PCP - General Family Medicine 02/27/23 INFORMATION SOURCE (unrecogn ized section and content) DATE CREATED AUTHOR 10/23/2021 [facility] DATE CREATED AUTHOR AUTHOR'S ORGANIZ ATION 12/07/2021 [facility] DATE CREATED AUTHOR AUTHOR'S ORGANIZ ATION 08/13/2022 [facility] DATE CREATED AUTHOR AUTHOR'S ORGANIZ ATION 05/04/2024 [facility] DATE CREATED AUTHOR AUTHOR'S ORGANIZ ATION 09/11/2024 [facility] EPIC Goals (unrecognized section and content) Goals may be documented in a n alternate section FOR RECORDS PERTAINING TO PATIENTS WHO ARE OR HAVE BEEN ENROLLED IN A CHEMICAL DEPENDENCY/SUBSTANCEABUSE PROGRAM, SOME INFORMATION MAY BE OMITTED. This clinical summary was aggregated from multiple sources. Caution should be exercised in using it in the provision of clinical care. This summary normalizes information from multiple sources, and as a consequence, information in this document may materially change the coding, format and clinical context of patient data. In addition, data may be omitted in some cases. CLINICAL DECISIONS SHOULD BE BASED ON THE PRIMARY CLINICAL RECORDS. [facility]. provides no warranty or guarantee of the accuracy or completeness of information in this document.
--- NOTE | 2024-11-06 18:02 | ED.GENADUL1 ---
HPI HPI - General Adult General Chief complaint: Extremity Injury, Upper Stated complaint: FELL IN RIGHT WRIST Time Seen by Provider: 11/06/24 17:35 Source: patient Mode of arrival: walk-in History of Present Illness HPI narrative: 59-year-old female presents to the emergency room chief complaint of right wrist injury. Patient states she was cutting down a box from refrigerator and tripped over the cardboard on the outstretched hand. She is right-hand dominant. Soft tissue swelling noted to the right wrist. No snuffbox tenderness noted. Denies previous fracture or trauma to this extremity. She did not take anything for pain prior to arrival Related Data Allergies Allergy/AdvReac Type Severity Reaction Status Date / Time adhesive tape Allergy Severe Rash Verified 11/06/24 17:36 Review of Systems ROS Status of ROS 10 or more systems reviewed and unremarkable except as noted in history and below PFSH PFSH Social History Little interest or pleasure in doing things: not at all Feeling down, depressed, or hopeless: not at all Exam Narrative Exam Narrative: All Systems are negative except as noted/marked.All systems reviewed and otherwise negative Nurses note and vital signs reviewed and patient is not hypoxic. General: The patient appears well and in no apparent distress. Patient is resting comfortably on cart. Skin: Warm, dry, no pallor noted. There is no rash noted. Head: Normocephalic, atraumatic Eye: Normal conjunctiva, no drainage, EOMI. PERRL Musculoskeletal: right wrist Tenderness, limited range of motion due to pain, neurovascularly intact distally, no elbow or shoulder pain, the patient has no evidence of calf tenderness, no pitting edema, symmetrical pulses noted bilaterally Neurological: A&O x4, normal speech Psychiatric: Cooperative Constitutional Vital Signs, click to edit/add: Last Vital Signs Temp 99.3 F 11/06/24 17:33 Pulse 89 11/06/24 17:33 Resp 20 11/06/24 17:33 BP 124/73 11/06/24 17:33 Pulse Ox 96 11/06/24 17:33 O2 Del Method Room Air 11/06/24 17:33 Course Vital Signs Vital signs: Vital Signs Temperature 99.3 F 11/06/24 17:33 Pulse Rate 89 11/06/24 17:33 Respiratory Rate 20 11/06/24 17:33 Blood Pressure 124/73 11/06/24 17:33 Pulse Oximetry 96 11/06/24 17:33 Oxygen Delivery Method Room Air 11/06/24 17:33 Temperature 99.3 F 11/06/24 17:33 Pulse Rate 89 11/06/24 17:33 Respiratory Rate 20 11/06/24 17:33 Blood Pressure 124/73 11/06/24 17:33 Pulse Oximetry 96 11/06/24 17:33 Oxygen Delivery Method Room Air 11/06/24 17:33 Medical Decision Making MDM Narrative Medical decision making narrative: 59-year-old female presents to the emergency room chief complaint of right wrist injury. Patient states she was cutting down a box from refrigerator and tripped over the cardboard on the outstretched hand. She is right-hand dominant. Soft tissue swelling noted to the right wrist. No snuffbox tenderness noted. Denies previous fracture or trauma to this extremity. She did not take anything for pain prior to arrival X-ray shows a ulnar styloid fracture as well as a radial fracture. Volar splint applied by myself. Extremity neurovascular tact before and after splint application. Initial fracture care here in the emergency room Differential Diagnosis Differential Diagnosis: wrist sprain, fracture Medical Records Medical records reviewed: Yes I reviewed the patient's medical records Imaging Data wrist: Radiologist's impression: ITS Impressions Wrist X-Ray 11/06/24 17:35 IMPRESSION: IMPACTED INTRA-ARTICULAR FRACTURE OF THE DISTAL RADIUS. CHIP FRACTURE STYLOID PROCESS OF THE ULNA. Impression dictated by: Chuck Tipton Jr., D.O. 11/06/2024 6:00 PM Dictation Location: [place] [address] Electronically authenticated by: [id number] Y Date: 11/06/2024 18:00 Discharge Plan Discharge Chief Complaint: Extremity Injury, Upper Clinical Impression: Fracture of wrist Patient Disposition: Home, Self-Care Time of Disposition Decision: 17:44 Condition: Good Print Language: Cambodian Instructions: Wrist Fracture in Adults (ED), P.R.I.C.E. Treatment (ED) Referrals: Donavan Edmondson DO [Physician, Orthopedics] - 1 week Dian Murcia MD [Primary Care Provider, Family Practice] - 1 week TISHA DONOVAN [Physician, Family Practice] - 1 week
[2024-11-06] MEDS: HYDROCODONE/ACET 5-325 MG TABLET 1 TAB PO (18:04)
== END 2024-11-06 18:13 | disposition home or self-care (01) ==
PROVIDERS: Emergency Provider Emergency Medicine; PCP Family Medicine
DX: S52.571A Other intraarticular fracture of lower end of right radius, initial encounter for closed fracture (principal); S52.611A Displaced fracture of right ulna styloid process, initial encounter for closed fracture; W01.0XXA Fall on same level from slipping, tripping and stumbling without subsequent striking against object, initial encounter
CPT/HCPCS: 29125; 73110; 99283

== ENCOUNTER 2024-12-02 08:59 | Outpatient (RCR) | payer OTHER, SELFPAY | END 2025-01-25 10:10 | disposition home or self-care (01) | LOC: OT 08:59 | PROVIDERS: PCP Family Medicine; Visit Provider Orthopaedic Surgery | DX: M25.531 Pain in right wrist (principal); S52.501D Unspecified fracture of the lower end of right radius, subsequent encounter for closed fracture with routine healing | CPT/HCPCS: 97022; 97110; 97140; 97166; 97530 ==

== ENCOUNTER 2025-04-05 07:00 | Outpatient (OUT) | payer OTHER, SELFPAY ==
--- OUTSIDE RECORDS SUMMARY | 2025-04-05 07:03 | XMS_ITS | Clinical Summary ---
Author Organization [facility] Address [address] [place] [id number] Care Team Providers Care Laboratory Director Name Role Phone Dian Murcia MD Primary Care Provider [phone] Allergies Active AllergyReactionsCriticalityNoted DateCommentsAdhesive Tape (Rosins) Nlmnyti4507/06/2012 Medications MedicationSigDispense QuantityRefillsLast FilledStart DateEnd DateStatus calcium phosphate-vitamin D3 250 mg-10 mcg (400 unit) chew Take by mouth.Active tamoxifen (NOLVADEX) 20 mg tablet Take 1 tablet (20 mg) by mouth once daily. 90 tablet 3Active Active Problems ProblemNoted DateDiagnosed DateHistory of breast lrthwh7210/24/2015Breast cancer 07/06/2012 Cancer Staging: Clinical:Stage IA(T1b, N0, cM0) - Signed by Jalen Cervantes on 07/06/2012 Pathologic:Stage IA(T1b, N0, cM0) - Signed by Jalen Cervantes on 07/06/2012 Immunizations ImmunizationAdministration DatesNext Dueinfluenza (IIV4) vaccine, age 6 mo - 64 yr, quadrivalent, PF (AFLURIA, FLUARIX, FLULAVAL, FLUZONE)02/03/2019influenza (ccIIV4) vaccine, age 6+ mo, quadrivalent, PF (FLUCELVAX)02/03/2018tetanus diphtheria pertussis (Tdap) vaccine, age 7+ yr (ADACEL, BOOSTRIX)05/18/2019 Social History Tobacco UseTypesPacks/DayYears UsedDateSmoking Tobacco: NeverPassive Smoke Exposure: PastSmokeless Tobacco: Never Tobacco Cessation:Counseling Given: No Alcohol UseStandard Drinks/WeekCommentsYes0 (1 standard drink = 0.6 oz pure alcohol)PHQ-2AnswerDate RecordedPHQ-2 irvkm9742Area Deprivation Index AnswerDate RecordedNational Score (1-100), lower number is lower risk78 12/09/2022State Score (1-10), lower number is lower jsrb1553Data from: https://www.neighborhoodatlas.medicine[facility].edu/. Last address used for [address] 3CommentsNoSex and Gender InformationValueDate RecordedSex Assigned at BirthNot on fileLegal SexFemale 06/30/2012 1:13 PM EDTGender IdentityNot on fileSexual OrientationNot on file Last Filed Vital Signs Vital SignReadingTime TakenCommentsBlood Dwwkzeag220/6808 1:58 PM EDT Cogwk937712/09/2021 1:58 PM OPSVjkejqpmmlz33.1 ??C (96.9 ??F)12/09/2021 1:58 PM EDTRespiratory Mkan709512/09/2021 1:58 PM EDTOxygen Lnxbikuhgj98%12/09/2021 1:58 PM EDTInhaled Oxygen Concentration--Wwkaph29 kg (207 lb 3.2 oz)12/09/2021 1:58 PM GBDBtkdvg395.1 cm (5' 5 )12/09/2021 1:58 PM EDTBody Mass Index34.48012/09/2021 1:58 PM EDT Plan of Treatment Health MaintenanceDue DateLast DoneCommentsAnxiety Rugblbenb87/05/1985Depression Nkiszddns58/05/1985HIV Zunibbako23/05/1985Hepatitis C Colnselvp36/05/1985 Hepatitis B Vaccine (1 of 3 - 19+ 3-dose series)1986Cervical Cancer Dbzpgfuhq30/05/1988Mammogram Lcvkijcon16/05/2007CT Uxwbcoxrwxuq33/05/2012 Cologuard (FIT-DNA)03/17/20127227Mdtllzccrds91/05/2012Colorectal Cancer Screening 2012Diabetes Phiqxafdl98/05/2012Fecal Occult Blood2012Lipid Olpkkirhl23/05/5614Mbtyhkaahqkdc64/05/2012Pneumococcal Vaccine: 50+ (1 of 1 - PCV)2017Shingrix Vaccine (1 of 2)2017Covid-19 Vaccine (3 - season)511/09/2020, 01/12/2021Influenza Vaccine (#1)2024 02/03/2019, 02/03/2018DTaP,Tdap,Td Vaccine (2 - Td or Tdap) RSV Vaccine (1 - 1-dose 75+ series)2042 Care Teams Team MemberRelationshipSpecialtyStart DateEnd Date Dian Murcia MD [address] [place] [address] PCP - GeneralFamily Medicine06/30/12
--- NOTE | 2025-04-05 07:25 | MM_ITS ---
Patient Name: TERA IGNACIO MR#: [id number] : 1965 Exam Date: 04/05/2025 Ordering Doctor: DR SHANICE RODRIGUEZ M.D. RADIOLOGY REPORT PROCEDURE: MM TOMOSYNTHESIS SCREENING BI COMPARISON: MM TOMOSYNTHESIS SCREENING BI, 01/26/2024. MM TOMOSYNTHESIS SCREENING BI, 12/19/2022. MG MAMM SCREEN 3D JESSE CAD, 12/05/2021. MAMMO POST BIOPSY UNILATERAL LEFT, 05/21/2012. INDICATIONS: Screening Calculator Name NCI Breast Cancer Risk Assessment Tool 5 Year Breast Cancer Risk n/a% Lifetime Breast Cancer Risk n/a% Personal Breast Cancer Yes, 2013, left Personal Ovarian Cancer No Treatments lumpectomy, radiation Family Cancers Grandmother-paternal with breast cancer at age 81; Mother with female cancer at age 35; Daughter with female cancer at age 34; Aunt-maternal with breast cancer at age 48; Father with lymphoid cancer at age ~60; Father with prostate cancer at age ~70. LOCATION: [facility] BREAST COMPOSITION: There are scattered areas of fibroglandular density. FINDINGS: DIAGNOSTIC CATEGORY 1--NEGATIVE. RIGHT BREAST: No significant suspicious finding. LEFT BREAST: No significant suspicious finding. RECOMMENDATIONS: ROUTINE MAMMOGRAM AND CLINICAL EVALUATION IN 12 MONTHS. Dictated by: Arjun Goetz MD on 04/05/2025 at 10:53 Approved by: Arjun Goetz MD on 04/05/2025 at 10:54
== END 2025-04-05 07:01 | disposition home or self-care (01) ==
LOC: MAMMO 07:00
PROVIDERS: PCP Family Medicine; Visit Provider Family Medicine
DX: Z12.31 Encounter for screening mammogram for malignant neoplasm of breast (principal); Z80.3 Family history of malignant neoplasm of breast; Z80.7 Family history of other malignant neoplasms of lymphoid, hematopoietic and related tissues; Z80.42 Family history of malignant neoplasm of prostate; Z80.8 Family history of malignant neoplasm of other organs or systems
CPT/HCPCS: 77063; 77067